=== PATIENT | female | born 1930 | race Caucasian/White ===

== ENCOUNTER 2018-03-25 20:25 | Inpatient (IN) | payer MEDICARE, OTHER ==
[~2018-03-25] VITALS: Ht 157.5 cm; Wt 48.9 kg
[~2018-03-25 20:25] MED LIST: ACET325 PO; AMLO10 PO; AMLO5 PO; ASPI325 PO; ASPI81CH PO; Amlodipine Besyl5 MG PO; BISA10S PR; CENTRUM SILVER1 EAC1 PO; CEPH500 PO; CHOL10002 PO; CIPR500 PO; CLON.5 PO; CYCL10 PO; Cranberry Conc500 MG PO; DOCU100 PO; ENOX40I SC; FAMO20 PO; FISH1000 PO; FLUO.05TO TOP; GENT.1TC TOP; HYDR1TAB94 PO; IBUP400 PO; Kristalose20 GM PO; LAVAP17G PO; LEVSOD100 PO; LEVSOD50 PO; LISI5 PO; METR500 PO; MULTI VITAMIN1 EACH PO; MULVITMIND PO; OMEP20ER PO; OXYACE5T PO; PANT40 PO; PROBIOTIC PO; PROBIOTIC1 EAC2 PO; Percocet 5-3251 EACH PO; Pyridium200 MG PO; RANI150 PO; SACC250C PO; SIMV40 PO; Senna Laxative8.6 MG PO; Senna8.6 M1 PO; VANCOCIN HCL125 MG GT; WARF2 PO; WARF3 PO; WARF4 PO; Zofran Odt8 MG SL
[2018-03-25] MEDS ORDERED: BACL10 (20:44)
[2018-03-25 22:06] LABS: BASOPHILS ABSOLUTE AUTO 0.04 K/mm3 (0.00-0.23); BASOPHILS PERCENT AUTO 1 % (0-2); EOSINOPHILS ABSOLUTE AUTO 0.13 K/mm3 (0.00-0.68); EOSINOPHILS PERCENT AUTO 2 % (0-6); Hematocrit 33.6 % (33.0-51.0); Hemoglobin 10.7 g/dL (11.5-16.0); IMMATURE GRAN ABSOLUTE AUTO 0.01 K/mm3 (0.00-0.10); IMMATURE GRAN PERCENT AUTO 0 % (0-1); LYMPHOCYTES PERCENT AUTO 20 % (21-46); MONOCYTES ABSOLUTE AUTO 0.78 K/mm3 (0.16-1.47); MONOCYTES PERCENT AUTO 11 % (4-13); Mean Corpuscular HGB 25.5 pg (26.0-34.0); Mean Corpuscular HGB Conc 31.8 g/dL (31.5-36.5); Mean Corpuscular Volume 80 fL (80-100); Mean Platelet Volume 8.8 fL (9.1-12.4); NEUTROPHILS ABSOLUTE AUTO 4.91 K/mm3 (1.96-9.15); NEUTROPHILS PERCENT AUTO 67 % (41-73); Platelet Count 275 K/mm3 (150-400); RDW Coefficient Variation 15.5 % (11.7-14.2); RDW Standard Deviation 44.3 fL (35.1-46.3); Red Blood Cell Count 4.19 M/mm3 (3.80-5.20); White Blood Cell Count 7.37 K/mm3 (4.00-11.30)
[2018-03-25 22:27] LABS: Alanine Aminotransfer (ALT/SGP 16 U/L (12-78); Albumin, Blood 3.7 g/dL (3.4-5.0); Alk Phos 70 U/L (50-136); Anion Gap 7 mmol/L (6-16); Aspartate Aminotrans (AST/SGOT 17 U/L (12-37); Bilirubin, Total 0.3 mg/dL (0.1-1.0); Blood Urea Nitrogen 22 mg/dL (8-24); Bun/Creatinine Ratio 24.4 (12.0-20.0); CO2, Blood 28 mmol/L (21-32); Calcium, Blood 9.6 mg/dL (8.5-10.1); Chloride, Blood 96 mmol/L (98-108); Globulin, Blood 3.6 g/dL (2.2-4.0); Glomerular Filtration Rate >60 (60-); Glucose, Blood 107 mg/dL (70-99); Potassium, Blood 4.5 mmol/L (3.5-5.5); Sodium, Blood 131 mmol/L (136-145); Total Protein, Blood 7.3 g/dL (6.4-8.2); Troponin I <0.015 ng/mL (0.000-0.040)
[2018-03-26] MEDS ORDERED: Senna8.6 MG PO (01:56)
[2018-03-26] MEDS ORDERED: DOC250 PO (01:58)
[2018-03-26] MEDS ORDERED: Milk Of Ma400 MG/5 M PO (02:00)
[2018-03-26] MEDS ORDERED: MIRALAX17 GM PO (02:01)
[2018-03-26] MEDS ORDERED: GLYCPS PR (02:04)
[2018-03-26] MEDS ORDERED: Ensure Plus237 ML PO (02:07)
[2018-03-26] MEDS ORDERED: magnesium PO (02:11)
[2018-03-26] MEDS ORDERED: ZINC15 PO (02:13)
[2018-03-28 05:10] LABS: BASOPHILS ABSOLUTE AUTO 0.06 K/mm3 (0.00-0.23); BASOPHILS PERCENT AUTO 1 % (0-2); EOSINOPHILS ABSOLUTE AUTO 0.34 K/mm3 (0.00-0.68); EOSINOPHILS PERCENT AUTO 6 % (0-6); Hemoglobin 9.7 g/dL (11.5-16.0); IMMATURE GRAN ABSOLUTE AUTO 0.01 K/mm3 (0.00-0.10); IMMATURE GRAN PERCENT AUTO 0 % (0-1); LYMPHOCYTES ABSOLUTE AUTO 1.29 K/mm3 (0.84-5.20); LYMPHOCYTES PERCENT AUTO 24 % (21-46); MONOCYTES ABSOLUTE AUTO 0.61 K/mm3 (0.16-1.47); MONOCYTES PERCENT AUTO 11 % (4-13); Mean Corpuscular HGB 25.3 pg (26.0-34.0); Mean Corpuscular HGB Conc 31.3 g/dL (31.5-36.5); Mean Corpuscular Volume 81 fL (80-100); Mean Platelet Volume 9.3 fL (9.1-12.4); NEUTROPHILS ABSOLUTE AUTO 3.18 K/mm3 (1.96-9.15); NEUTROPHILS PERCENT AUTO 58 % (41-73); Platelet Count 273 K/mm3 (150-400); RDW Coefficient Variation 15.4 % (11.7-14.2); RDW Standard Deviation 44.6 fL (35.1-46.3); Red Blood Cell Count 3.83 M/mm3 (3.80-5.20); White Blood Cell Count 5.49 K/mm3 (4.00-11.30)
[2018-03-28 05:26] LABS: Bun/Creatinine Ratio 26.5 (12.0-20.0); Creatinine, Blood 0.98 mg/dL (0.40-1.00); Potassium, Blood 5.3 mmol/L (3.5-5.5)
[2018-03-29 05:48] LABS: Albumin, Blood 3.5 g/dL (3.4-5.0); Anion Gap 6 mmol/L (6-16); Blood Urea Nitrogen 23 mg/dL (8-24); Bun/Creatinine Ratio 27.3 (12.0-20.0); CO2, Blood 25 mmol/L (21-32); Calcium, Blood 9.2 mg/dL (8.5-10.1); Chloride, Blood 97 mmol/L (98-108); Creatinine, Blood 0.84 mg/dL (0.40-1.00); Glomerular Filtration Rate >60 (60-); Glucose, Blood 93 mg/dL (70-99); Phosphorus, Blood 2.8 mg/dL (2.5-4.9); Potassium, Blood 4.8 mmol/L (3.5-5.5); Sodium, Blood 128 mmol/L (136-145)
[2018-03-30 05:06] LABS: BASOPHILS ABSOLUTE AUTO 0.04 K/mm3 (0.00-0.23); BASOPHILS PERCENT AUTO 1 % (0-2); EOSINOPHILS ABSOLUTE AUTO 0.62 K/mm3 (0.00-0.68); EOSINOPHILS PERCENT AUTO 11 % (0-6); Hematocrit 31.5 % (33.0-51.0); IMMATURE GRAN ABSOLUTE AUTO 0.01 K/mm3 (0.00-0.10); IMMATURE GRAN PERCENT AUTO 0 % (0-1); LYMPHOCYTES ABSOLUTE AUTO 1.64 K/mm3 (0.84-5.20); LYMPHOCYTES PERCENT AUTO 29 % (21-46); MONOCYTES ABSOLUTE AUTO 0.67 K/mm3 (0.16-1.47); MONOCYTES PERCENT AUTO 12 % (4-13); Mean Corpuscular HGB 25.6 pg (26.0-34.0); Mean Corpuscular HGB Conc 31.7 g/dL (31.5-36.5); Mean Corpuscular Volume 81 fL (80-100); Mean Platelet Volume 9.3 fL (9.1-12.4); NEUTROPHILS PERCENT AUTO 48 % (41-73); Platelet Count 281 K/mm3 (150-400); RDW Coefficient Variation 15.6 % (11.7-14.2); RDW Standard Deviation 45.2 fL (35.1-46.3); Red Blood Cell Count 3.91 M/mm3 (3.80-5.20); White Blood Cell Count 5.68 K/mm3 (4.00-11.30)
[2018-03-30 05:24] LABS: Albumin, Blood 3.1 g/dL (3.4-5.0); Anion Gap 6 mmol/L (6-16); Blood Urea Nitrogen 33 mg/dL (8-24); Bun/Creatinine Ratio 33.3 (12.0-20.0); CO2, Blood 25 mmol/L (21-32); Chloride, Blood 98 mmol/L (98-108); Creatinine, Blood 0.99 mg/dL (0.40-1.00); Glomerular Filtration Rate 56 (60-); Glucose, Blood 81 mg/dL (70-99); Phosphorus, Blood 3.6 mg/dL (2.5-4.9); Potassium, Blood 5.3 mmol/L (3.5-5.5); Sodium, Blood 129 mmol/L (136-145)
[2018-03-30 06:43] LABS: Osmolality, Serum 274 mos/KG (275-300)
[2018-03-30] MEDS ORDERED: Calcitonin-Sal3.7 ML (18:01)
[2018-03-30] MEDS ORDERED: FENT50TP TOP (18:01)
[2018-03-30] MEDS ORDERED: CHOL10002 PO (18:02)
== END 2018-03-30 16:41 | DRG 181 ==
LOC: ER 20:25 → MEDS 20:26
PROVIDERS: Emergency Medicine; Family Medicine
PROC: 0BBJ3ZX Excision of Left Lower Lung Lobe, Percutaneous Approach, Diagnostic (ICD-10-PCS; principal; 2018-03-30)
DX: C34.32 Malignant neoplasm of lower lobe, left bronchus or lung (principal); S22.059A Unspecified fracture of T5-T6 vertebra, initial encounter for closed fracture; E87.1 Hypo-osmolality and hyponatremia; M81.0 Age-related osteoporosis without current pathological fracture; I10 Essential (primary) hypertension; Z86.718 Personal history of other venous thrombosis and embolism; F17.210 Nicotine dependence, cigarettes, uncomplicated; Z66 Do not resuscitate; E03.9 Hypothyroidism, unspecified; K25.9 Gastric ulcer, unspecified as acute or chronic, without hemorrhage or perforation; E78.5 Hyperlipidemia, unspecified; E55.9 Vitamin D deficiency, unspecified; R53.81 Other malaise; R59.0 Localized enlarged lymph nodes
CPT/HCPCS: 36415; 71260; 72128; 72131; 74177; 80048; 80053; 80069; 82306; 83930; 83935; 84484; 85025; 93005; 93010; 96372; 96374; 96375; 96376; 97110; 97116; 97161; 97530; 99285; G0378; G8978; G8979; J0630; J1650; J1885; J2405; J3010; Q9967

== ENCOUNTER → 2018-05-03 | Outpatient (CLI) | payer MEDICARE, OTHER ==
[~2018-05-03] MED LIST changes: +BACL10; +Calcitonin-Sal3.7 ML; +DOC250 PO; +Ensure Plus237 ML PO; +FENT50TP TOP; +GLYCPS PR; +MIRALAX17 GM PO; +Milk Of Ma400 MG/5 M PO; +Senna8.6 MG PO; +ZINC15 PO; +magnesium PO
== END | disposition home or self-care (01) ==
LOC: LAB SHORT 07:45 → PLD 07:45
DX: R22.1 Localized swelling, mass and lump, neck (principal); D49.0 Neoplasm of unspecified behavior of digestive system
CPT/HCPCS: 88173

== ENCOUNTER 2018-06-27 21:45 | Emergency (ER) | payer MEDICARE, OTHER ==
[~2018-06-27] VITALS: Ht 154.9 cm; Wt 45.4 kg
[2018-06-27] MEDS ORDERED: CLON.1 PO (22:06)
[2018-06-27 23:49] LABS: BASOPHILS ABSOLUTE AUTO 0.05 K/mm3 (0.00-0.23); BASOPHILS PERCENT AUTO 1 % (0-2); EOSINOPHILS ABSOLUTE AUTO 0.29 K/mm3 (0.00-0.68); EOSINOPHILS PERCENT AUTO 6 % (0-6); Hematocrit 29.3 % (33.0-51.0); Hemoglobin 9.1 g/dL (11.5-16.0); IMMATURE GRAN PERCENT AUTO 0 % (0-1); LYMPHOCYTES ABSOLUTE AUTO 1.03 K/mm3 (0.84-5.20); LYMPHOCYTES PERCENT AUTO 20 % (21-46); MONOCYTES ABSOLUTE AUTO 0.61 K/mm3 (0.16-1.47); MONOCYTES PERCENT AUTO 12 % (4-13); Mean Corpuscular HGB 25.3 pg (26.0-34.0); Mean Corpuscular HGB Conc 31.1 g/dL (31.5-36.5); Mean Corpuscular Volume 81 fL (80-100); Mean Platelet Volume 9.2 fL (9.1-12.4); NEUTROPHILS PERCENT AUTO 62 % (41-73); Platelet Count 267 K/mm3 (150-400); RDW Coefficient Variation 14.9 % (11.7-14.2); RDW Standard Deviation 44.2 fL (35.1-46.3); White Blood Cell Count 5.18 K/mm3 (4.00-11.30)
[2018-06-28 00:09] LABS: Anion Gap 8 mmol/L (6-16); Blood Urea Nitrogen 32 mg/dL (8-24); CO2, Blood 23 mmol/L (21-32); Calcium, Blood 8.5 mg/dL (8.5-10.1); Chloride, Blood 99 mmol/L (98-108); Creatinine, Blood 0.89 mg/dL (0.40-1.00); Glomerular Filtration Rate >60 (60-); Glucose, Blood 94 mg/dL (70-99); Magnesium, Blood 2.2 mg/dL (1.6-2.4); Potassium, Blood 4.7 mmol/L (3.5-5.5); Sodium, Blood 130 mmol/L (136-145)
== END 2018-06-28 01:13 | disposition home or self-care (01) ==
LOC: ER 21:45
PROVIDERS: Emergency Medicine
DX: R03.1 Nonspecific low blood-pressure reading (principal); Z88.5 Allergy status to narcotic agent; Z88.8 Allergy status to other drugs, medicaments and biological substances; Z88.2 Allergy status to sulfonamides; Z88.1 Allergy status to other antibiotic agents; Z79.899 Other long term (current) drug therapy; I10 Essential (primary) hypertension; Z79.82 Long term (current) use of aspirin; Z79.891 Long term (current) use of opiate analgesic
CPT/HCPCS: 36415; 80048; 83735; 85025; 93005; 93010; 99284-25

== ENCOUNTER 2018-07-18 20:34 | Observation (INO) | payer MEDICARE, OTHER ==
[~2018-07-18] VITALS: Ht 154.9 cm; Wt 46.0 kg
[~2018-07-18 20:34] MED LIST changes: +CLON.1 PO; -DOC250 PO; +Duragesic TOP; -FENT50TP TOP
[2018-07-18] MEDS ORDERED: FURO20 PO (20:52)
[2018-07-18 21:45] LABS: BASOPHILS ABSOLUTE AUTO 0.04 K/mm3 (0.00-0.23); BASOPHILS PERCENT AUTO 1 % (0-2); EOSINOPHILS ABSOLUTE AUTO 0.09 K/mm3 (0.00-0.68); EOSINOPHILS PERCENT AUTO 2 % (0-6); Hematocrit 28.8 % (33.0-51.0); Hemoglobin 8.9 g/dL (11.5-16.0); IMMATURE GRAN ABSOLUTE AUTO 0.02 K/mm3 (0.00-0.10); IMMATURE GRAN PERCENT AUTO 0 % (0-1); LYMPHOCYTES ABSOLUTE AUTO 0.73 K/mm3 (0.84-5.20); LYMPHOCYTES PERCENT AUTO 12 % (21-46); MONOCYTES ABSOLUTE AUTO 0.63 K/mm3 (0.16-1.47); MONOCYTES PERCENT AUTO 11 % (4-13); Mean Corpuscular HGB 24.8 pg (26.0-34.0); Mean Corpuscular HGB Conc 30.9 g/dL (31.5-36.5); Mean Corpuscular Volume 80 fL (80-100); NEUTROPHILS PERCENT AUTO 74 % (41-73); RDW Coefficient Variation 14.9 % (11.7-14.2); RDW Standard Deviation 43.3 fL (35.1-46.3); Red Blood Cell Count 3.59 M/mm3 (3.80-5.20); White Blood Cell Count 5.91 K/mm3 (4.00-11.30)
[2018-07-18 21:49] LABS: Mean Platelet Volume 9.7 fL (9.1-12.4); Platelet Count 166 K/mm3 (150-400)
[2018-07-18 22:04] LABS: Troponin I 0.016 ng/mL (0.000-0.040)
[2018-07-18 22:04] LABS: Source, Urine Catheter
[2018-07-18 22:05] LABS: Alanine Aminotransfer (ALT/SGP 24 U/L (12-78); Albumin, Blood 3.5 g/dL (3.4-5.0); Albumin/Globulin Ratio 1.2 (0.8-1.8); Alk Phos 57 U/L (50-136); Anion Gap 10 mmol/L (6-16); Aspartate Aminotrans (AST/SGOT 18 U/L (12-37); Bilirubin, Total 0.3 mg/dL (0.1-1.0); Blood Urea Nitrogen 21 mg/dL (8-24); CO2, Blood 25 mmol/L (21-32); Calcium, Blood 8.8 mg/dL (8.5-10.1); Chloride, Blood 92 mmol/L (98-108); Globulin, Blood 2.9 g/dL (2.2-4.0); Glucose, Blood 101 mg/dL (70-99); Potassium, Blood 4.1 mmol/L (3.5-5.5); Sodium, Blood 127 mmol/L (136-145); Total Protein, Blood 6.4 g/dL (6.4-8.2)
[2018-07-18 22:11] LABS: Bilirubin, Urine Neg (Neg); Blood, Urine Neg (Neg); Glucose Qualitative, Urine Neg (Neg); Ketones, Urine Neg (Neg); Leukocyte Esterase, Urine Neg (Neg); Nitrite, Urine Neg (Neg); Protein, Urine Neg (Neg); Urobilinogen, Urine NORM (Normal)
[2018-07-18 22:12] LABS: Bun/Creatinine Ratio 25.8 (12.0-20.0); Creatinine, Blood 0.82 mg/dL (0.40-1.00); Glomerular Filtration Rate >60 (60-)
[2018-07-18 22:18] LABS: Appearance, Urine Clear (Clear); Color, Urine Yellow (P-Yellow)
[2018-07-19 00:12] LABS: International Normalized Ratio 1.11; Prothrombin Time Results 11.4 Sec (9.7-11.5)
[2018-07-19 10:19] LABS: Hematocrit 30.4 % (33.0-51.0); Hemoglobin 9.4 g/dL (11.5-16.0); Mean Corpuscular HGB 24.9 pg (26.0-34.0); Mean Corpuscular HGB Conc 30.9 g/dL (31.5-36.5); Mean Corpuscular Volume 80 fL (80-100); Mean Platelet Volume 9.1 fL (9.1-12.4); Platelet Count 216 K/mm3 (150-400); RDW Standard Deviation 44.1 fL (35.1-46.3); Red Blood Cell Count 3.78 M/mm3 (3.80-5.20); White Blood Cell Count 4.97 K/mm3 (4.00-11.30)
[2018-07-19 10:40] LABS: Alanine Aminotransfer (ALT/SGP 22 U/L (12-78); Albumin, Blood 3.3 g/dL (3.4-5.0); Alk Phos 60 U/L (50-136); Anion Gap 7 mmol/L (6-16); Aspartate Aminotrans (AST/SGOT 16 U/L (12-37); Bilirubin, Total 0.4 mg/dL (0.1-1.0); Blood Urea Nitrogen 16 mg/dL (8-24); Bun/Creatinine Ratio 20.3 (12.0-20.0); CO2, Blood 27 mmol/L (21-32); Calcium, Blood 8.5 mg/dL (8.5-10.1); Chloride, Blood 98 mmol/L (98-108); Creatinine, Blood 0.79 mg/dL (0.40-1.00); Globulin, Blood 3.2 g/dL (2.2-4.0); Glomerular Filtration Rate >60 (60-); Glucose, Blood 153 mg/dL (70-99); Potassium, Blood 3.6 mmol/L (3.5-5.5); Sodium, Blood 132 mmol/L (136-145); Total Protein, Blood 6.5 g/dL (6.4-8.2)
[2018-07-19] MEDS ORDERED: Hytrin2 MG PO (16:47)
[2018-07-20] MEDS ORDERED: LIDO700A20 TOP (08:52)
[2018-07-20] MEDS ORDERED: ALBU90OI INH (08:53)
== END 2018-07-20 14:14 | disposition home health service (06) ==
LOC: ER 20:34 → MEDS 20:35
PROVIDERS: Emergency Medicine; Internal Medicine
DX: E86.0 Dehydration (principal); E87.1 Hypo-osmolality and hyponatremia; D64.9 Anemia, unspecified; R53.1 Weakness; M51.35 Other intervertebral disc degeneration, thoracolumbar region; M80.08XA Age-related osteoporosis with current pathological fracture, vertebra(e), initial encounter for fracture; I10 Essential (primary) hypertension; E03.9 Hypothyroidism, unspecified; K21.9 Gastro-esophageal reflux disease without esophagitis; K56.609 Unspecified intestinal obstruction, unspecified as to partial versus complete obstruction; Z87.11 Personal history of peptic ulcer disease; Z79.82 Long term (current) use of aspirin; Z79.899 Other long term (current) drug therapy; Z88.5 Allergy status to narcotic agent; Z88.1 Allergy status to other antibiotic agents; Z88.2 Allergy status to sulfonamides; Z86.73 Personal history of transient ischemic attack (TIA), and cerebral infarction without residual deficits; Z87.891 Personal history of nicotine dependence
CPT/HCPCS: 36415; 71046; 72100; 80053; 81003; 82272; 83735; 84145; 84443; 84484; 85025; 85027; 85610; 85730; 86850; 86900; 86901; 93005; 93010; 94760; 94761; 96372; 96374; 97116; 97162; 97166; 97530; 97535; 99285-25; C9113; G0378; G8978; G8979; G8980; G8987; G8988; J0630; J1650; J7030

== ENCOUNTER → 2018-12-13 | Outpatient (CLI) | payer MEDICARE, OTHER ==
[~2018-12-13] MED LIST changes: +ACYC400 PO; +ALBU90OI INH; +AMOCLA500 PO; +BIOTENE MOIST44.3 ML PO; +FURO20 PO; +Hytrin2 MG PO; +INCRUSE ELLI62.5 MCG INH; +LIDO700A20 TOP; +ONDA4ODT SL; +PRED10 PO; +Phos-Nak Packe1 EACH PO
== END ==
LOC: PLD 07:11 → LAB SHORT 07:11
DX: D11.9 Benign neoplasm of major salivary gland, unspecified (principal)
CPT/HCPCS: 88173

== ENCOUNTER 2018-12-16 03:42 | Inpatient (IN) | payer MEDICARE, OTHER ==
[~2018-12-16] VITALS: Ht 154.9 cm; Wt 50.6 kg
[~2018-12-16 03:42] MED LIST changes: -ACYC400 PO; -AMOCLA500 PO; -BIOTENE MOIST44.3 ML PO; -INCRUSE ELLI62.5 MCG INH; -ONDA4ODT SL; -PRED10 PO; -Phos-Nak Packe1 EACH PO
[2018-12-16 04:15] LABS: Calcium, Ionized (POC) 1.23 mmol/L (1.10-1.46); Chloride (POC) 99 mmol/L (98-108); Creatinine (POC) 0.7 mg/dL (0.6-1.0); Glucose (ISTAT POC) 153 mg/dL (70-99); Hemoglobin (POC) 11.9 g/dL (12.0-16.0); Potassium (POC) 3.9 mmol/L (3.5-5.5); Sodium (POC) 136 mmol/L (135-148); Total CO2 (POC) 25 mmol/L (21-32)
[2018-12-16 04:15] LABS: BASOPHILS ABSOLUTE AUTO 0.02 K/mm3 (0.00-0.23); BASOPHILS PERCENT AUTO 0 % (0-2); EOSINOPHILS PERCENT AUTO 0 % (0-6); Hematocrit 35.2 % (33.0-51.0); IMMATURE GRAN ABSOLUTE AUTO 0.03 K/mm3 (0.00-0.10); IMMATURE GRAN PERCENT AUTO 0 % (0-1); LYMPHOCYTES ABSOLUTE AUTO 0.26 K/mm3 (0.84-5.20); LYMPHOCYTES PERCENT AUTO 3 % (21-46); MONOCYTES ABSOLUTE AUTO 0.67 K/mm3 (0.16-1.47); MONOCYTES PERCENT AUTO 7 % (4-13); Mean Corpuscular HGB 24.9 pg (26.0-34.0); Mean Corpuscular HGB Conc 31.3 g/dL (31.5-36.5); Mean Corpuscular Volume 80 fL (80-100); Mean Platelet Volume 9.1 fL (9.1-12.4); NEUTROPHILS ABSOLUTE AUTO 8.81 K/mm3 (1.96-9.15); NEUTROPHILS PERCENT AUTO 90 % (41-73); Platelet Count 191 K/mm3 (150-400); RDW Standard Deviation 51.4 fL (35.1-46.3); Red Blood Cell Count 4.41 M/mm3 (3.80-5.20); White Blood Cell Count 9.79 K/mm3 (4.00-11.30)
[2018-12-16] MEDS ORDERED: INCRUSE ELLI62.5 MCG INH (04:15)
[2018-12-16] MEDS ORDERED: HYDR1TAB94 PO (04:22)
[2018-12-16 04:25] LABS: Alanine Aminotransfer (ALT/SGP 22 U/L (12-78); Albumin, Blood 3.7 g/dL (3.4-5.0); Alk Phos 70 U/L (50-136); Anion Gap 8 mmol/L (6-16); Aspartate Aminotrans (AST/SGOT 26 U/L (12-37); Bilirubin, Total 0.5 mg/dL (0.1-1.0); Blood Urea Nitrogen 27 mg/dL (8-24); Bun/Creatinine Ratio 35.1 (12.0-20.0); CO2, Blood 26 mmol/L (21-32); Calcium, Blood 9.1 mg/dL (8.5-10.1); Chloride, Blood 102 mmol/L (98-108); Creatinine, Blood 0.77 mg/dL (0.40-1.00); Globulin, Blood 3.7 g/dL (2.2-4.0); Glomerular Filtration Rate >60 (60-); Glucose, Blood 152 mg/dL (70-99); Potassium, Blood 4.1 mmol/L (3.5-5.5); Sodium, Blood 136 mmol/L (136-145); Total Protein, Blood 7.4 g/dL (6.4-8.2)
--- NOTE | 2018-12-16 08:26 | NUR ---
NURSING PCU DAYSHIFT: Assumed care of pt at approx 0715. Arrived from ER via [facility] to unit bed w/one staff assist. Pt is a/o, [place], cooperative w/care. C/O mild general weakness. Mass noted to L jaw, largest round area below L jaw and extends up to the L ear, shaped like an avocado. Area is red, hard, and painful. Tele in place, NSR, no c/o CP/pressure, SBP 160's, no noted edema. L/S w/scattered wheezes and coarseness, crackles noted to RLL, denies dyspnea, O2 sat stable, placed currently on 2L NC, no noted cough. Abd SNT, BT+, c/o difficulty and pain swallowing r/t mass. Voiding w/o difficulty though experiences occ incontinence, urine is cloudy and malodorous. PIV x1, s/l w/abx as ordered. Consult placed to ENT, update provided, plans to eval this afternoon for poss aspiration. Seen by PMD, new d/o received, pt ok'd for [place] diet as long as there is no noted aspiration. Pt oriented to unit and call system, denies any questions/needs, cont to monitor for changes.
[2018-12-16 09:26] LABS: Source, Urine Voided
[2018-12-16 09:37] LABS: Bilirubin, Urine Neg (Neg); Blood, Urine 1+ (Neg); Glucose Qualitative, Urine Neg (Neg); Ketones, Urine Neg (Neg); Leukocyte Esterase, Urine Neg (Neg); Nitrite, Urine Neg (Neg); Protein, Urine 2+ (Neg); Urobilinogen, Urine NORM (Normal)
[2018-12-16 10:51] LABS: Appearance, Urine Clear (Clear); Bacteria Not Seen /hpf; Color, Urine Yellow (P-Yellow); Red Blood Cells, Urine 0-2 /hpf (0-2); Squamous Epithelial Cells Few /hpf (Few); White Blood Cells, Urine Not Seen /hpf (0-5)
--- NOTE | 2018-12-16 16:20 | NUR ---
12/16/18 1620 Denise Gilbert PT ON SCHEDULED ANTIBIOTICS AND RECIEVED THEM PRIOR TO ARRIVAL TO OR.
--- NOTE | 2018-12-16 17:28 | NUR ---
ASSUMED CARE / SHIFT SUMMARY: BEDSIDE REPORT RECEIVED FROM VEE Donald RN FROM OR, & CINDY Hunt [employer]PER[employer]. PT ARRIVED TO ICU-13 AT APPROX 1632. PT IS INTUBATED & SEDATED ON ARRIVAL. SHE ARRIVES FROM THE OR, HAVING PREVIOUSLY BEEN ADMITTED TO PCU, FOLLOWING A SUBMANDIBULAR ABCESS DRAINAGE TO THE L SIDE OF NECK. 7.0 ETT IS 22.0 CM AT LIP. VENT SETTINGS: AC 14, TV 300, PEEP 5, FiO2 30%. O2 SATS > 92%. LS ARE DIM & COARSE IN BASES. SR W/ HR 70-80s NOTED ON MONITOR. PT IS HYPERTENSIVE ON ARRIVAL, IMPROVING W/ SEDATION. HYPOACTIVE BT x4, PT NPO AT THIS TIME. DR. YAO STS TO ASSESS NEED FOR FURTHER NUTRITION TOMORROW. PT HAS BEEN INCONTINENT, UA SENT BY PRIOR RN. SKIN OVERALL IS CDI. DRESSING TO L SIDE OF NECK WHERE SURGICAL PROCEDURE WAS PERFORMED IS CDI, SMALL AMNT OF DARK DRAINAGE CAN BE SEEN THROUGH DRESSING. WILL CONTINUE TO MONITOR & REPORT OFF TO ONCOMING RN.
[2018-12-16 17:53] LABS: PCO2 Arterial 47.1 mmHg (35-45); PO2 Arterial 55.4 mmHg (80-100); pH Blood Arterial 7.37 (7.35-7.45)
--- NOTE | 2018-12-16 18:47 | NUR ---
BELONGINGS: 4 RINGS REMOVED FROM PT's HAND & PT's WATCH, WHICH HAD BEEN PLACED IN CHART PRIOR TO SURGERY, PLACED IN CUP W/ PT's NAME ON IT. ALL 4 RINGS & WATCH HAVE BEEN TAKEN HOME W/ THE PT's SON, LORNA.
[2018-12-16 20:38] LABS: Source, Urine Catheter
[2018-12-16 20:42] LABS: Appearance, Urine Clear (Clear); Bilirubin, Urine Neg (Neg); Blood, Urine 2+ (Neg); Color, Urine Yellow (P-Yellow); Glucose Qualitative, Urine Neg (Neg); Ketones, Urine Neg (Neg); Leukocyte Esterase, Urine Neg (Neg); Nitrite, Urine Neg (Neg); Protein, Urine 3+ (Neg); Specific Gravity, Urine 1.015 (1.003-1.022); Urobilinogen, Urine NORM (Normal)
[2018-12-16 20:57] LABS: Bacteria Not Seen /hpf; Red Blood Cells, Urine 0-2 /hpf (0-2); Squamous Epithelial Cells Many /hpf (Few); White Blood Cells, Urine 0-2 /hpf (0-5)
--- NOTE | 2018-12-16 22:00 | NUR ---
PATIENT INTUBATED AND SEDATED, WITH PROPOFOL INFUSING AT 50 MCG. PATIENT OPENS EYES SLIGHTLY, AND REACHES FOR ETT WITH STIMULI AND SUCTIONING, BUT NOT FOLLOWING DIRECTIONS. SUCTIONING LARGE AMT CLEAR SECRETIONS VIA ETT AND ORAL. LEFT SIDE OF NECK SWOLLEN, SWELLING REMAINS WITHIN THE BORDER DRAWN AROUND AREA. DRESSING REMAINS CD&I. FLORES PLACED DRAINING CLEAR YELLOW URINE.
[2018-12-17 03:33] LABS: BASOPHILS PERCENT AUTO 0 % (0-2); EOSINOPHILS PERCENT AUTO 0 % (0-6); Hematocrit 32.7 % (33.0-51.0); IMMATURE GRAN ABSOLUTE AUTO 0.06 K/mm3 (0.00-0.10); IMMATURE GRAN PERCENT AUTO 1 % (0-1); LYMPHOCYTES ABSOLUTE AUTO 0.28 K/mm3 (0.84-5.20); LYMPHOCYTES PERCENT AUTO 3 % (21-46); MONOCYTES ABSOLUTE AUTO 0.47 K/mm3 (0.16-1.47); MONOCYTES PERCENT AUTO 5 % (4-13); Mean Corpuscular HGB 25.3 pg (26.0-34.0); Mean Corpuscular HGB Conc 30.6 g/dL (31.5-36.5); Mean Platelet Volume 9.8 fL (9.1-12.4); NEUTROPHILS ABSOLUTE AUTO 8.73 K/mm3 (1.96-9.15); NEUTROPHILS PERCENT AUTO 92 % (41-73); Platelet Count 172 K/mm3 (150-400); RDW Coefficient Variation 18.6 % (11.7-14.2); RDW Standard Deviation 55.4 fL (35.1-46.3); Red Blood Cell Count 3.96 M/mm3 (3.80-5.20); White Blood Cell Count 9.54 K/mm3 (4.00-11.30)
[2018-12-17 03:37] LABS: Mean Corpuscular Volume 83 fL (80-100)
[2018-12-17 03:49] LABS: Anion Gap 7 mmol/L (6-16); Blood Urea Nitrogen 25 mg/dL (8-24); Bun/Creatinine Ratio 29.3 (12.0-20.0); CO2, Blood 24 mmol/L (21-32); Calcium, Blood 8.8 mg/dL (8.5-10.1); Chloride, Blood 106 mmol/L (98-108); Creatinine, Blood 0.85 mg/dL (0.40-1.00); Glomerular Filtration Rate >60 (60-); Glucose, Blood 128 mg/dL (70-99); Magnesium, Blood 2.3 mg/dL (1.6-2.4); Phosphorus, Blood 3.3 mg/dL (2.5-4.9); Potassium, Blood 4.1 mmol/L (3.5-5.5); Sodium, Blood 137 mmol/L (136-145)
[2018-12-17 04:58] LABS: PO2 Arterial 60.9 mmHg (80-100); pH Blood Arterial 7.41 (7.35-7.45)
--- NOTE | 2018-12-17 06:51 | NUR ---
SUMMARY PATIENT REMAINS INTUBATED AND SEDATED WITH PROPOFOL. PATIENT CONTINUES TO REACH FOR ETT WITH ORAL CARE AND REPOSITIONING. NOT FOLLOWING DIRECTIONS. SWELLING TO LEFT NECK CONTINUES TO BE WITHIN MARKED BOUNDARIES. BILAT WRIST RESTRAINTS CONTINUE.
--- NOTE | 2018-12-17 07:30 | NUR ---
ASSUMED CARE OF PATIENT SEE ASSESSMENT CHARTING FOR DETAILS. PATIENT REMAINS INTUBATED AND VENTILATOR SETTINGS REMAIN: A/C 14, TV 300, PEEP 5 AND FIO2 30%. SEDATED WITH PROPOFOL GTT AT 50MCG/KG/MIN; DELIA'S SCALE AROUND 3. PATIENT ROUSABLE TO VERBAL STIMULI; PEERL AT 3MM. MONITOR REMAINS NSR WITH RARE ECTOPY; VSS. LUNGS DIMINSHED IN BASES; CLEAR IN ANTERIOR LOBES. FLORES TO GRAVITY AND DRAINING SMALL AMOUNTS OF DEEJAY COLORED URINE. IVF INFUSING WITH LR AT 75ML/HR. BILAT. WRIST RESTRAINTS IN PLACE TO PREVENT SELF EXTUBATION AND PULLING OF LINES. SON AT BEDSIDE AND VERY SUPPORTIVE.
--- NOTE | 2018-12-17 10:45 | NUR ---
DR. GARCIA (ENT-SURGEON) HERE; SPOKE TO PATIENTS' SON AND DISCUSSED POC. ALSO, SPOKE WITH DR. ORELLANA (CEMETERY COUNSELOR) RE: POC; PROBABLE EXTUBATION TOMORROW; PLANS IS TO ALLOW SWELLING OF L FACE/JAW/THROAT TO CONT. TO REDUCE IN SIZE.
--- NOTE | 2018-12-17 10:55 | NUR ---
RN CHANGED L NECK DRESSING PER REQUEST DR. GARCIA. PEN-AIDEN DRAIN WITH LITTLE OR NO OUTPUT; DRAIN SPONGES PLACED AND COVERED WITH STERILE 4X4'S AND SECURED WITH MEFIX TAPE.
--- NOTE | 2018-12-17 18:00 | NUR ---
SUMMARY: FENTANYL 50MCG GIVEN AROUND 16:30 FOR INCREASED RESTLESSNESS AND PER SON'S REQUEST; BP MODERATELY ELEVATED. PATIENT MORE RELAXED AND PEACEFUL FOLLOWING MEDICATION; FOREHEAD LESS FURROWED. ONLY 290ML OF U.O. THE PAST 12 HOURS; REMAINS NPO D/T SURGERY TO NECK/ESOPHAGUS REGION. IVF AT 75ML/HR. WILL REPORT TO ONCOMING RN.
--- NOTE | 2018-12-17 20:45 | NUR ---
PATIENT INTUBATED AND SEDATED WITH PROPOFOL, AWAKENS TO SLIGHT STIMULI FOLLOWING DIRECTIONS AND NODDING YES AND NO TO QUESTIONS, ATTEMPTING TO TALK DESPITE REMINDING THAT SHE CAN'T TALK WITH ETT IN PLACE. VENT SET AT AC 14, TV 300, PEEP 5, FIO2 30% SWELLING TO LEFT NECK APPEARS TO BE DOWN FROM THIS MORNING.
[2018-12-18 03:40] LABS: BASOPHILS PERCENT AUTO 0 % (0-2); EOSINOPHILS PERCENT AUTO 0 % (0-6); Hematocrit 32.8 % (33.0-51.0); IMMATURE GRAN PERCENT AUTO 0 % (0-1); LYMPHOCYTES ABSOLUTE AUTO 0.17 K/mm3 (0.84-5.20); LYMPHOCYTES PERCENT AUTO 3 % (21-46); MONOCYTES PERCENT AUTO 6 % (4-13); Mean Corpuscular HGB 24.7 pg (26.0-34.0); Mean Corpuscular HGB Conc 30.5 g/dL (31.5-36.5); Mean Corpuscular Volume 81 fL (80-100); Mean Platelet Volume 9.4 fL (9.1-12.4); NEUTROPHILS ABSOLUTE AUTO 4.69 K/mm3 (1.96-9.15); NEUTROPHILS PERCENT AUTO 91 % (41-73); Platelet Count 181 K/mm3 (150-400); RDW Coefficient Variation 18.9 % (11.7-14.2); RDW Standard Deviation 55.7 fL (35.1-46.3); Red Blood Cell Count 4.05 M/mm3 (3.80-5.20); White Blood Cell Count 5.16 K/mm3 (4.00-11.30)
[2018-12-18 04:06] LABS: Albumin, Blood 2.7 g/dL (3.4-5.0); Anion Gap 8 mmol/L (6-16); Blood Urea Nitrogen 27 mg/dL (8-24); Bun/Creatinine Ratio 30.8 (12.0-20.0); CO2, Blood 26 mmol/L (21-32); Calcium, Blood 8.4 mg/dL (8.5-10.1); Chloride, Blood 107 mmol/L (98-108); Creatinine, Blood 0.88 mg/dL (0.40-1.00); Glomerular Filtration Rate >60 (60-); Glucose, Blood 125 mg/dL (70-99); Phosphorus, Blood 2.7 mg/dL (2.5-4.9); Potassium, Blood 3.9 mmol/L (3.5-5.5); Sodium, Blood 141 mmol/L (136-145)
--- NOTE | 2018-12-18 06:22 | NUR ---
SUMMARY PATIENT REMAINS INTUBATED AND SEDATED. PROPOFOL RESTARTED AT 25MCG AFTER WEAN COMPLETED BY RT. PATIENT AWAKENS EASILY AND FOLLOWING DIRECTIONS WITHOUT DIFFICULTY, NODDING YES AND NO TO QUESTIONS. FALLING BACK TO SLEEP WHEN UNDISTURBED. WRIST RESTRAINTS REMAIN IN PLACE DUE TO RISK FOR SELF EXTUBATION. SWELLING TO LEFT NECK REMAINS UNCHANGED, DRESSING REMAINS INTACT WITH SMALL AMT OF DRAINAGE SEEN CONTAINED IN DRESSING.
--- NOTE | 2018-12-18 07:36 | NUR ---
ASSUMED CARE PT. AWAKENS TO VERBAL STIMULI AND FOLLOWS COMMANDS. SHAKES HEAD NO TO QUESTIONS OF PAIN. PT. VSS THIS AM. REMAINS SEDATED ON VENT WITH SETTINGS OF AC 14, TV300, 30% PEEP 5. BILAT WRIST RESTRAINTS REMAIN IN PLACE FOR SAFETY. DRESSING REMAINS CDI TO LEFT NECK.
--- NOTE | 2018-12-18 09:45 | NUR ---
DR. ORELLANA AT BEDSIDE TO TALK WITH SON UPDATED ON PT CONDITION AND DISCUSSED IN DETAIL WITH SON PROCESS FOR EXTUBATION TO MAKE IT SAFE POSSIBLE FOR PATIENT. PT. SON VERBALIZED UNDERSTANDING. VSS AT THIS TIME.
--- NOTE | 2018-12-18 11:50 | NUR ---
CUFF LEAK TEST
--- NOTE | 2018-12-18 11:51 | NUR ---
CUFF LEAK TEST PT CUFF DEFLATED 4CC; NO CUFF LEAK AUDIBLE EXTERNALLY AND ONLY SLIGHT WHEEZE AUSCULTATED USING STETHOSCOPE. DR. ORELLANA NOTIFIED OF THIS. PLANS FOR PT TO REMAIN INTUBATED AT THIS TIME.
--- NOTE | 2018-12-18 18:05 | NUR ---
SHIFT SUMMARY PT. REMAINS SEDATED AND INTUBATED. ATTEMPTED CUFF DEFLATION TODAY WITH MINIMAL AIR LEAK NOTED. FOR AIRWAY PROTECTION ETT TO REMAIN IN PLACE T/O NIGHT AND REASSESS TOMORROW. PT VSS T/O SHIFT WITH FREQUENT PVCS. REPORT TO ONCOMING RN.
--- NOTE | 2018-12-18 19:30 | NUR ---
PATIENT INTUBATED AND SEDATED WITH PROPOFOL. VENT SET AT AC 14, TV 300, PEEP 5, FIO2 30% PATIENT AWAKENS TO SLIGHT STIMULI FALLING BACK TO SLEEP WHEN UNDISTURBED. SWELLING TO LEFT NECK CONTINUES AND IS WELL WITHIN MARKINGS AROUND AREA, DRESSING IN PLACE AND IS CD&I. BOTH HANDS ARE SWOLLEN, ELEVATED ON PILLOWS. NO EDEMA SEEN IN LOWER EXTREMITIES. DOCTOR REYNA AWARE OF NO OG IN PLACE DUE TO NECK SWELLING FOR ORAL MEDICATIONS, WILL CONTINUE TO HOLD FOR NOW AND MONITOR BP AND HEART MONITOR CLOSELY.
[2018-12-19 05:47] LABS: BASOPHILS PERCENT AUTO 0 % (0-2); EOSINOPHILS PERCENT AUTO 0 % (0-6); Hematocrit 37.1 % (33.0-51.0); Hemoglobin 11.3 g/dL (11.5-16.0); IMMATURE GRAN ABSOLUTE AUTO 0.03 K/mm3 (0.00-0.10); IMMATURE GRAN PERCENT AUTO 1 % (0-1); LYMPHOCYTES ABSOLUTE AUTO 0.39 K/mm3 (0.84-5.20); LYMPHOCYTES PERCENT AUTO 6 % (21-46); MONOCYTES ABSOLUTE AUTO 0.29 K/mm3 (0.16-1.47); MONOCYTES PERCENT AUTO 5 % (4-13); Mean Corpuscular HGB 25.5 pg (26.0-34.0); Mean Corpuscular HGB Conc 30.5 g/dL (31.5-36.5); NEUTROPHILS ABSOLUTE AUTO 5.77 K/mm3 (1.96-9.15); NEUTROPHILS PERCENT AUTO 89 % (41-73); Platelet Count 204 K/mm3 (150-400); RDW Coefficient Variation 19.1 % (11.7-14.2); RDW Standard Deviation 57.5 fL (35.1-46.3); Red Blood Cell Count 4.44 M/mm3 (3.80-5.20); White Blood Cell Count 6.48 K/mm3 (4.00-11.30)
[2018-12-19 05:59] LABS: Mean Corpuscular Volume 84 fL (80-100)
[2018-12-19 06:10] LABS: Albumin, Blood 2.9 g/dL (3.4-5.0); Anion Gap 8 mmol/L (6-16); Blood Urea Nitrogen 23 mg/dL (8-24); Bun/Creatinine Ratio 31.9 (12.0-20.0); CO2, Blood 26 mmol/L (21-32); Calcium, Blood 8.8 mg/dL (8.5-10.1); Chloride, Blood 108 mmol/L (98-108); Creatinine, Blood 0.72 mg/dL (0.40-1.00); Glomerular Filtration Rate >60 (60-); Glucose, Blood 107 mg/dL (70-99); Phosphorus, Blood 2.6 mg/dL (2.5-4.9); Potassium, Blood 3.9 mmol/L (3.5-5.5); Sodium, Blood 142 mmol/L (136-145)
--- NOTE | 2018-12-19 07:36 | NUR ---
SUMMARY PATIENT REMAINS INTUBATED AND SEDATED. PATIENT AWAKENS EASILY AND FOLLOWING DIRECTIONS. PATIENT BECOMING ANGRY AND PULLING ON RESTRAINTS AND ATTEMPTING TO SPEAK WHEN INFORMED THAT SHE WILL NEED TO KEEP THE ETT IN PLACE A WHILE LONGER AND THAT SHE WILL BE HAVING ANOTHER TEST LATER TODAY. PATIENT RELAXING AND AGREED TO SLEEP FOR NOW. PROPOFOL RESTARTED AT 50 MCG. NODDING HEAD NO WHEN ASKED IF SHE FEELS SHE NEEDS PAIN MEDICATION. PATIENT NOW MORE RELAXED AND BP BACK TO NORMAL. SWELLING TO LEFT NECK APPEARS TO BE BETTER THIS AM. BOTH HANDS ARE SWOLLEN, KEEPING THEM ELEVATED ON PILLOWS.
--- NOTE | 2018-12-19 08:33 | NUR ---
ASSUMED CARE / PROVIDER VISIT: REPORT RECEIVED FROM LORENA Donald RN. ASSUMED CARE OF THIS PT AT APPROX 0700. UPON ASSESSMENT, PT IS RESTING QUIETLY W/ PROPOFOL CHARTED IN FLOWSHEET FOR SEDATION. WHEN SEDATION VACATION IS PERFORMED, THE PT AWAKENS & IS FOLLOWING COMMANDS, SHE DENIES PAIN AT THAT TIME. SEDATION IS RESUMED & POWERGLIDE IS PLACED BY DG Schumacher RN. PT TOLERATED WELL. DR. ORELLANA IN ROOM TO SEE PT, HE STS THAT IF THERE IS A CUFF LEAK NOTED WHEN RT DEFLATES THE ETT CUFF & THE PT CONTINUES TO PASS WEAN TRIAL, SHE WILL LIKELY BE EXTUBATED TODAY. LORENA Cleaning RT, IS NOTIFIED OF THIS & WILL COME ATTEMPT CUFF DEFLATION SOON. WILL CONTINUE TO MONITOR & UPDATE NEEDED.
--- NOTE | 2018-12-19 09:22 | NUR ---
CUFF DEFLATION: LORENA Cleaning, RT, IN ROOM TO DEFLATE ETT CUFF. SHE STS THE PT DID NOT HAVE AN AUDIBLE AIR LEAK UNTIL THE CUFF WAS COMPLETELY DEFLATED. WILL NOTIFY DR. ORELLANA OF THIS & CONTINUE TO MONITOR.
--- NOTE | 2018-12-19 13:35 | NUR ---
DR. GARCIA: PROVIDER AT BEDSIDE, UPDATED ON POC. 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 HE STS OKAY TO PLACE OGT FOR NUTRITIONAL PURPOSES. WILL NOTIFY DR. ORELLANA OF THIS & REQUEST DIETARY CONSULT TO MANAGE NUTRITION. NO FURTHER ORDERS. WILL CONTINUE TO MONITOR & UPDATE NEEDED.
--- NOTE | 2018-12-19 18:31 | NUR ---
SHIFT SUMMARY: NO ACUTE CHANGES THIS SHIFT. PT REMAINS SEDATED/INTUBATED, FOLLOWING COMMANDS W/ LIGHTENED SEDATION AT TIMES. BILAT SOFT WRIST RESTRAINTS CHARTED IN INTERVENTIONS. LS ARE CLEAR T/O, DIM IN BASES. VENT SETTINGS: AC 14, TV 300, PEEP 5, FiO2 30%. NSR ON MONITOR, HR 60-70s. REMAINS HYPERTENSIVE, MEDS PER EMAR. BT x4, OGT W/ CONTINUOUS TF INFUSING AT 20 ML/HR, GOAL IS 30 ML/HR. FLORES PATENT/DRAINING DARK YELLOW URINE, PT DIURESED WELL W/ 2400 ML URINE OUTPUT THIS SHIFT. SKIN OVERALL CDI, DRESSING TO L NECK REMAINS CDI. POWERGLIDE TO BLAZE IS POSITIONAL W/ LAB DRAWS. WILL CONTINUE TO MONITOR & REPORT OFF TO ONCOMING RN.
--- NOTE | 2018-12-19 20:57 | NUR ---
ASSUMED PT CARE AT 1914 PT APPEARS COMFORTABLE IN BED WITH DAUGHTER AT BEDSIDE. VENTILATOR SETTINGS: AC14/ TV 300/ PEEP 5/ FIO2 30%. PROPOFOL INFUSING AT 50MCG/KG; LR AT 30MLS/HR; NS TKO. TF VITAL HIGH PROTEIN INFUSING AT 20ML/HR WITH A GOAL OF 30ML/HR. PER REPORTING OFF RN PT MAY BE IN NEED OF PRN LABETALOL D/T SBP >180. BP WAS REASSESSED WITH A BP OF 183/65; 20MG PRN LABETOLOL WITH OTHER SCHEDULED BP MEDICATIONS AT 2004. PRN LABETALOL UNEFFECTIVE WHEN BP WAS REASSESSED AT 2019 WITH SBP GREATER THAN 200 MMHG. ADMINISTERED THE OTHER 20MG OF PRN LABETALOL AT 2024. RESP RATE ALSO INCREASED TO 20-30; THEREFORE, PT WAS REPOSITIONED AND PRN FENTANYL 25MCG WAS ADMINISTERED. BOTH MEDICATIONS APPEAR EFFECTIVE BP HAS SINCE SLOWLY DECREASED TO 185/80; WILL CONTINUE TO MONITOR BP CLOSELY. PT APPEARS COMFORTABLE AT THIS TIME. CALL LIGHT IN REACH. FAMILY IS NO LONGER AT BEDSIDE.
--- NOTE | 2018-12-19 21:35 | NUR ---
NOTIFIED PHYSICIAN CALLED DR. ORELLANA D/T PT'S ELEVATED BP'S. NEW ORDERS FOR NORVASC 5MG PT ONE TIME ONLY, WELL ORDERS TO CHANGE PRN LABETALOL TO PRN Q4HRS INSTEAD OF Q6HRS. DR. ORELLANA ALSO GAVE ORDERS TO ADMINISTERED SYNTHROID 0.1MG PT AND TO D/C THE IV ORDER.
[2018-12-20 04:02] LABS: BASOPHILS PERCENT AUTO 0 % (0-2); EOSINOPHILS PERCENT AUTO 0 % (0-6); Hematocrit 36.5 % (33.0-51.0); Hemoglobin 11.1 g/dL (11.5-16.0); IMMATURE GRAN ABSOLUTE AUTO 0.02 K/mm3 (0.00-0.10); IMMATURE GRAN PERCENT AUTO 0 % (0-1); LYMPHOCYTES PERCENT AUTO 8 % (21-46); MONOCYTES ABSOLUTE AUTO 0.36 K/mm3 (0.16-1.47); MONOCYTES PERCENT AUTO 6 % (4-13); Mean Corpuscular HGB 25.6 pg (26.0-34.0); Mean Corpuscular HGB Conc 30.4 g/dL (31.5-36.5); Mean Corpuscular Volume 84 fL (80-100); Mean Platelet Volume 9.9 fL (9.1-12.4); NEUTROPHILS ABSOLUTE AUTO 5.44 K/mm3 (1.96-9.15); NEUTROPHILS PERCENT AUTO 86 % (41-73); Platelet Count 182 K/mm3 (150-400); RDW Coefficient Variation 19.4 % (11.7-14.2); RDW Standard Deviation 57.1 fL (35.1-46.3); Red Blood Cell Count 4.34 M/mm3 (3.80-5.20); White Blood Cell Count 6.32 K/mm3 (4.00-11.30)
[2018-12-20 04:43] LABS: Albumin, Blood 2.6 g/dL (3.4-5.0); Anion Gap 8 mmol/L (6-16); Blood Urea Nitrogen 26 mg/dL (8-24); Bun/Creatinine Ratio 39.6 (12.0-20.0); CO2, Blood 27 mmol/L (21-32); Calcium, Blood 8.2 mg/dL (8.5-10.1); Chloride, Blood 106 mmol/L (98-108); Creatinine, Blood 0.66 mg/dL (0.40-1.00); Glomerular Filtration Rate >60 (60-); Glucose, Blood 145 mg/dL (70-99); Magnesium, Blood 2.3 mg/dL (1.6-2.4); Phosphorus, Blood 2.8 mg/dL (2.5-4.9); Potassium, Blood 3.8 mmol/L (3.5-5.5); Sodium, Blood 141 mmol/L (136-145)
--- NOTE | 2018-12-20 05:55 | NUR ---
SBT/SEDATION VACATION PROPOFOL TURNED OFF AT 0430. SBT INITIATED AT 0445. PT WAS ALERT; CALM AND COOPERATIVE AND ABLE TO FOLLOW COMMANDS. VENT SETTINGS: PRESSURE SUPPORT 7/5 WITH FIO2 25%. PT MAINTAINTED RESP RATE LESS THAN 32 WITH RATE MAINLY IN THE 20'S; A COUPLE TIMES PT DROPPED DOWN TO LESS THAN 10 BPM AND HAD TO BE REMINDED TO TAKE A DEEP BREATH, WHICH SHE WAS ABLE TO DO SO. TV FLUCTUATED BETWEEN 300-500. OXYGEN SATURATIONS MAINTAINED GREATER THAN 95%. VS REMAINED STABLE T/O SBT. MINIMAL CUFF LEAK NOTED. AFTER SBT PT PLACED BACK ON PROPOFOL OF 30CG/KG.
--- NOTE | 2018-12-20 06:04 | NUR ---
END OF SHIFT SUMMARY PT HAS REMAINED INTUBATED AND SEDATED T/O SHIFT WITH PROPOFOL INFUSING AT 50MCG/KG. ABLE TO OPEN EYES AND FOLLOW COMMANDS DURING SEDATION VACATION; SEE PREVIOUS NOTE. VENT SETTINGS AC 14/ TV 300/ PEEP 5/ FIO2 25%. OXYGEN SATURATIONS GREATER THAN 91%. PT HAD NO SECRETIONS T/O SHIFT UNTIL AFTER SBT WAS OVER AND PT STARTED PRODUCING THICK, CLEAR SPUTUM. PT WAS DIURESED YESTERDAY ON DAY SHIFT AND HAS PRODUCED LARGE AMOUNTS OF CLEAR, YELLOW URINE. FLORES IS PATENT AND DRAINING TO GRAVITY. EDEMA TO BILATERAL ARMS/HANDS HAS DECREASED. LUNG SOUNDS ARE CLEAR T/O. PT HAS BEEN IN NSR TO SINUS BRADYCARDIA T/O THE NIGHT. PT REMAINS IN BILATERAL SOFT WRIST RESTRAINTS. PT HAS BEEN MEDICATED FOR PAIN X3 THIS SHIFT D/T PT DISPLAYING NONVERBAL S/SX OF PAIN. PT APPEARS COMFORTABLE AT THIS TIME.
--- NOTE | 2018-12-20 09:40 | NUR ---
ASSUMED CARE / FAMILY UPDATE; REPORT RECEIVED FROM RESHMA Grider RN. ASSUMED CARE OF THIS PT AT APPROX 0700. PT IS RESTING QUIETLY ON ASSESSMENT, RESPONDING TO PAINFUL STIMULI W/ SEDATION. DURING SEDATION VACATION, PT IS FULLY AWAKE & FOLLOWING COMMANDS. SHE DID BECOME ANXIOUS & TEARFUL DURING THIS TIME, BUT REDIRECTED EASILY. SEDATION RESUMED. PT IS NOW RESTING COMFORTABLY AGAIN. VENT SETTINGS: AC 14, TV 300, PEEP 5, FiO2 25%. CUFF LEAK IS AUDIBLE W/ PT COUGHING. WILL NOTIFY DR. GARZON DURING ROUNDING W/ HOPES OF EXTUBATION TODAY. DRESSING TO L NECK HAS BEEN CHANGED & AREA CLEANSED. PT's SISTER & SON AT BEDSIDE, THEY HAVE BEEN UPDATED ON POC & DENY QUESTIONS. WILL CONTINUE TO MONITOR & UPDATE NEEDED.
--- NOTE | 2018-12-20 11:30 | NUR ---
DR GARCIA IN TO ASSESS PT. DR GARCIA CLEARED PT TO BE EXTUBATED FROM HIS STANDPOINT IF CLEARED FROM DR GARZON. DRAIN PRESENT IN THE LT NECK D/C'D BY DR GARCIA. NEW NON-ADHERENT DRESSING WITH MEFIX PLACED OVER SITE. WILL F/U WITH DR GARZON ABOUT POSSIBLE EXTUBATION. DR. GARCIA REPORTS PT CAN BE TAPERED OFF OF IV STEROIDS AT THIS POINT AND WILL LEAVE THIS UP TO DR GARZON TO DECIDE TAPER.
--- NOTE | 2018-12-20 12:21 | NUR ---
DR. GARZON / UPDATE: PROVIDER ROUNDING, UPDATED ON POC W/ THIS PT. STS SHE WOULD LIKE A SBT TO BE COMPLETED WELL A CUFF LEAK TEST. DIANA Hunt, RT, NOTIFIED OF THIS. AIR LEAK IS AUDIBLE W/ DEFLATED ETT CUFF. SEDATION PLACED ON STANDBY FOR SBT. WILL CONTINUE TO MONITOR & UPDATE NEEDED.
--- NOTE | 2018-12-20 15:25 | NUR ---
PT. HAD POSITIVE CUFF LEAK AROUND TUBE TODAY.
--- NOTE | 2018-12-20 18:12 | NUR ---
SHIFT SUMMARY: PT REMAINS SEDATED/INTUBATED AFTER FAILING SBT THIS AFTERNOON & BECOMING APNEIC MULTIPLE TIMES. THE PT NODS "YES" WHEN ASKED IF SHE IS "TOO TIRED" TO FINISH SBT DURING THAT TIME. SHE SHAKES HER HEAD "NO" WHEN ASKED IF HAVING ANY PAIN. LS ARE CLEAR, SLIGHTLY DIM IN BASES. VENT SETTINGS: AC 14, TV 300, PEEP 5, & FiO2 25%. NSR NOTED ON MONITOR, HR 60-70s. REMAINS HYPERTENSIVE AT TIME, BUT IMPROVED W/ MORGUE KEEPER. BT x4, CONTINUOUS TF OF VITAL HP INFUSING AT GOAL OF 30 ML/HR. RESIUALS CONSISTENTLY LOW. FLORES PATENT/DRAINING DARK YELLOW URINE. SKIN OVERALL CDI. GAUZE DRESSING CDI FOLLOWING MANI DRAIN REMOVAL THIS AM. WILL CONTINUE TO MONITOR & REPORT OFF TO ONCOMING RN.
--- NOTE | 2018-12-20 20:00 | NUR ---
ASSUMED PT CARE AT 1915 PT RESTING COMFORTABLY IN BED WITH VENT SETTINGS: AC 14; TV 300; PEEP 5; FIO2 25%. OXYGEN SATURATIONS >92%. PT ABLE TO OPEN EYES TO VERBAL STIMULI AND FOLLOW COMMANDS. PROPOFOL INFUSING AT 50MCG/KG; NS TKO; LR TKO. PT APPEARS COMFORTABLE AT THIS TIME.
[2018-12-21 04:00] LABS: BASOPHILS PERCENT AUTO 0 % (0-2); EOSINOPHILS ABSOLUTE AUTO 0.02 K/mm3 (0.00-0.68); EOSINOPHILS PERCENT AUTO 0 % (0-6); Hematocrit 35.4 % (33.0-51.0); Hemoglobin 10.7 g/dL (11.5-16.0); IMMATURE GRAN ABSOLUTE AUTO 0.03 K/mm3 (0.00-0.10); IMMATURE GRAN PERCENT AUTO 0 % (0-1); LYMPHOCYTES ABSOLUTE AUTO 1.53 K/mm3 (0.84-5.20); LYMPHOCYTES PERCENT AUTO 21 % (21-46); MONOCYTES ABSOLUTE AUTO 0.86 K/mm3 (0.16-1.47); MONOCYTES PERCENT AUTO 12 % (4-13); Mean Corpuscular HGB 25.1 pg (26.0-34.0); Mean Corpuscular HGB Conc 30.2 g/dL (31.5-36.5); Mean Corpuscular Volume 83 fL (80-100); Mean Platelet Volume 8.8 fL (9.1-12.4); NEUTROPHILS ABSOLUTE AUTO 4.87 K/mm3 (1.96-9.15); NEUTROPHILS PERCENT AUTO 67 % (41-73); Platelet Count 204 K/mm3 (150-400); RDW Coefficient Variation 18.5 % (11.7-14.2); RDW Standard Deviation 55.1 fL (35.1-46.3); Red Blood Cell Count 4.27 M/mm3 (3.80-5.20); White Blood Cell Count 7.31 K/mm3 (4.00-11.30)
[2018-12-21 04:09] LABS: Anion Gap 6 mmol/L (6-16); Blood Urea Nitrogen 30 mg/dL (8-24); Bun/Creatinine Ratio 42.3 (12.0-20.0); CO2, Blood 30 mmol/L (21-32); Calcium, Blood 7.9 mg/dL (8.5-10.1); Chloride, Blood 107 mmol/L (98-108); Creatinine, Blood 0.71 mg/dL (0.40-1.00); Glomerular Filtration Rate >60 (60-); Glucose, Blood 104 mg/dL (70-99); Magnesium, Blood 2.2 mg/dL (1.6-2.4); Potassium, Blood 3.7 mmol/L (3.5-5.5); Sodium, Blood 143 mmol/L (136-145)
--- NOTE | 2018-12-21 05:12 | NUR ---
SBT/SEDATION VACATION PROPOFOL TURNED OFF AT 0400; SBT INITIATED AT 0435 WITH PRESSURE SUPPORT 7/5; FIO2 25%. PT ALERT, CALM AND COOPERATIVE, AND FOLLOWING COMMANDS. PT MAINTAINED TV GREATER THAN 350; RR GREATER THAN 12, BUT LESS THAN 27. VS REMAINED STABLE T/O SBT. PT REMAINED ON SPONTANEOUS AFTER SBT D/T PT TOLERATING SO WELL. PROPOFOL REMAINS OFF AT THIS TIME.
--- NOTE | 2018-12-21 05:20 | NUR ---
PHYSICIAN NOTIFIED NOTIFIED OF PHOSPHORUS LEVEL OF 2.0; NO NEW ORDERS.
--- NOTE | 2018-12-21 06:14 | NUR ---
END OF SHIFT SUMMARY PT HAS REMAINED ON VENT MODE AC14; TV 300; PEEP 5; FIO2 25%; OXYGEN SATURATIONS >93%. DURING SEDATION VACATION PT WAS ABLE TO OPEN EYES SPONTANEOUSLY, FOLLOW COMMANDS, AND REMAINED CALM AND COOPERATIVE T/O ENTIRE SBT. PT WAS LEFT ON SPONTANEOUS MODE WITH PRESSURE SUPPORT 7/5; FIO2 25% FOR AT LEAST ANOTHER 30 MINUTES AFTER SBT WAS FINISHED. PT DID FAIRLY WELL; HOWEVER, SHE DID START TO TIRE AND RESP RATE DECREASED TO LESS THAN 11. THEREFORE, PT WAS PLACED BACK ON AC MODE AT 0525 WITH SAME VENT SETTINGS. PT RECEIVED ONE DOSE OF PRN FENTANYL 50MCG FOR PAIN THIS SHIFT. LUNG SOUNDS REMAIN CLEAR T/O. FLORES CONTINUES TO DRAIN CLEAR, YELLOW URINE; PATENT AND DRAINING TO GRAVITY. PT HAS REMAINED IN NSR T/O SHIFT WITH HR 60'S. SITE TO LEFT SIDE OF NECK REMAINS COVERED WITH GAUZE WITH MINIMAL AMOUNTS OF DRIED SEROSANGUINEOUS DRAINAGE NOTED TO DRESSING. PT APPEARS COMFORTABLE AT THIS TIME.
--- NOTE | 2018-12-21 08:00 | NUR ---
INITIAL ASSESSMENT PATIENT INTUBATED AND WAS ON SEDATION. PROPOFOL PLACED ON STANDBY. PATIENT NOT YET AWAKE. PATIENT RESPONDING TO PAINFUL STIMULI. NO SIGNS OF PAIN NOTED. PATIENT HAS TEMP OF 99.1 DEGREES FAHRENHEIT. LUNGS ARE CLEAR THROUGHOUT. PATIENT SATTING WELL ON AC 14, TV 300, PEEP 5, 25% FIO2. SCANT AMOUNT OF THICK, CLEAR SPUTUM FROM ETT. PATIENT IN NSR, HR IN THE 60S. BP STABLE. 1+ EDEMA NOTED IN HANDS. ABDOMEN NONTENDER, NO DISTENTION NOTED, SOFT, WITH NORMOACTIVE BS. TF INFUSING INTO OG AT GOAL RATE. SENOKOT GIVEN PATIENT HAS NO RECORDED BM SINCE THE November. FLORES DRAINING YELLOW URINE. PATIENT HAS SCATTERED BRUISING. GAUZE AND TAPE PLACED ON SURGICAL SITE ON LEFT SIDE OF NECK- SMALL AMOUNT OF SEROSANGUINEOUS FLUID NOTED. NS TKO. BED LOW, CALL LIGHT IN REACH. WILL CONTINUE TO MONITOR PATIENT FREQUENTLY THROUGHOUT SHIFT.
--- NOTE | 2018-12-21 08:17 | NUR ---
DR. YAO IN ROOM.
--- NOTE | 2018-12-21 10:00 | NUR ---
PATIENT EXTUBATED BY RT. FAMILY AT BEDSIDE.
--- NOTE | 2018-12-21 10:37 | NUR ---
PATIENT RESTING IN BED QUIETLY. SON AT BEDSIDE. PATIENT CALM AND COOPERATIVE. PATIENT DOING WELL SINCE EXTUBATION. PATIENT ON 3 L O2 VIA NC. PATIENT ORIENTED AND FOLLOWING COMMANDS. DR. YAO HAS BEEN IN TO SEE PATIENT SINCE EXTUBATION. WILL CONTINUE TO MONITOR.
--- NOTE | 2018-12-21 12:36 | NUR ---
PATIENT RESTING QUIETLY IN BED. PATIENT ORIENTED TO ALL QUESTIONS EXCEPT TO EVENT AND DATE/ TIME. PATIENT WEAK BUT TRYING TO HELP WITH REPOSITIONING. PATIENT DENIES PAIN. PATIENT AFEBRILE. PATIENT LUNGS SOUNDS CLEAR. SATTING WELL ON RA. PATIENT IN SR, HR IN THE 60S. BP STABLE. FLORES REMOVED AND ATTENDS PLACED. NO CHANGE IN SKIN. NS TKO. NO OTHER ACUTE CHANGES TO NOTE ON AT THIS TIME. WILL CONTINUE TO MONITOR.
--- NOTE | 2018-12-21 16:30 | NUR ---
PATIENT RESTING IN BED QUIETLY, RECEIVING BREATHING TREATMENT. PATIENT HAS NO COMPLAINTS. PATIENT HAS TEMP OF 99.7 DEGREES FAHRENHEIT AND STATES SHE "FEELS COLD". PATIENT REMAINS SATTING WELL ON RA. PATIENT IN SR, HR IN THE 70S. BP STABLE. NO OTHER ACUTE CHANGES TO NOTE ON AT THIS TIME. WILL CONTINUE TO MONITOR.
--- NOTE | 2018-12-21 18:02 | NUR ---
SHIFT SUMMARY PATIENT EXTUBATED THIS AM AT 1000 AND HAS BEEN DOING WELL SINCE. PATIENT HAS HAD SOME COMPLAINTS OF BACK DISCOMFORT BUT REPORTS RELIEF WITH REPOSITIONING. PATIENT HAD TMAX OF 99.7 DEGREES FAHRENHEIT. PATIENT IS MOSTLY ORIENTED. PATIENT WAS NOT AWARE WHY SHE WAS HERE AND DOES NOT KNOW DATE/ TIME. PATIENT IS WEAK BUT IS ASSISTING WITH REPOSITIONING. PATIENT HAS BEEN SATTING WELL ON RA. PATIENT LUNGS ARE CLEAR T/O. SHALLOW BREATHS NOTED. PATIENT HAS REMAINED IN SR, HR 60S TO 70S. BP HAS BEEN ELEVATED A COUPLE OF TIMES BUT MOSTLY STABLE T/O SHIFT. 1+ EDEMA REMAINS IN BILAT HANDS. SENOKOT GIVEN LAST DOCUMENTED BM ON THE November. PATIENT INCONTINENT OF URINE- ATTENDS IN PLACE. PATIENT HAS VOIDED SINCE FLORES CATH REMOVED THIS AM. NO CHANGE IN SKIN. NS TKO. LR TO INFUSE AT 150 MLS/ HOUR FOR MAINTENANCE OVERNIGHT. PATIENT RECEIVED 20 MM KPHOS THIS AM FOR PHOS LEVEL OF 2.0. PATIENT NPO AT THIS TIME, IS RECEIVING WATER SWABS. SWALLOW EVAL TOMORROW. BED LOW, CALL LIGHT IN REACH. PATIENT HAS NO COMPLAINTS AT THIS TIME. WILL CONTINUE TO MONITOR UNTIL REPORT GIVEN TO ONCOMING APPLICATION DEVELOPMENT CONSULTANT NURSE SHORTLY.
--- NOTE | 2018-12-21 19:00 | NUR ---
ASSUMED CARE ASSUMED CARE OF PATIENT. AWAKE AND ALERT. COOPERATIVE WITH CARE. ORIENTED TO SELF, PLACE, AND MONTH/YEAR, BUT NOT TO TIME OF DAY OR EVENTS LEADING UP TO BEING IN THE HOSPITAL. MOVES ALL EXTREMITIES WEAKLY. ASSISTS WITH REPOSITIONING. C/O NECK/BACK PAIN 01/27- REPOSTIONED FOR COMFORT. MONITOR SHOWS NSR, RATE 70s. SBP 160s. REMAINS ON RA- SATS 92-94%. RESPIRATIONS EVEN AND UNLABORED, SHALLOW. DENIES SOB. NO COUGH NOTED AT THIS TIME. DENIES NAUSEA. NPO FOR NOW- SWALLOW EVAL SCHEDULED FOR AM. INCONTINENT OF URINE- ATTENDS IN PLACE. SEE SHIFT ASSESSMENT FOR FULL ASSESSMENT.
[2018-12-22 04:34] LABS: BASOPHILS ABSOLUTE AUTO 0.01 K/mm3 (0.00-0.23); BASOPHILS PERCENT AUTO 0 % (0-2); EOSINOPHILS ABSOLUTE AUTO 0.06 K/mm3 (0.00-0.68); EOSINOPHILS PERCENT AUTO 1 % (0-6); Hematocrit 37.4 % (33.0-51.0); Hemoglobin 11.5 g/dL (11.5-16.0); IMMATURE GRAN ABSOLUTE AUTO 0.03 K/mm3 (0.00-0.10); IMMATURE GRAN PERCENT AUTO 0 % (0-1); LYMPHOCYTES ABSOLUTE AUTO 0.95 K/mm3 (0.84-5.20); LYMPHOCYTES PERCENT AUTO 11 % (21-46); MONOCYTES ABSOLUTE AUTO 1.01 K/mm3 (0.16-1.47); MONOCYTES PERCENT AUTO 12 % (4-13); Mean Corpuscular HGB 24.8 pg (26.0-34.0); Mean Corpuscular HGB Conc 30.7 g/dL (31.5-36.5); Mean Corpuscular Volume 81 fL (80-100); NEUTROPHILS ABSOLUTE AUTO 6.69 K/mm3 (1.96-9.15); NEUTROPHILS PERCENT AUTO 77 % (41-73); Platelet Count 228 K/mm3 (150-400); RDW Coefficient Variation 18.4 % (11.7-14.2); RDW Standard Deviation 53.1 fL (35.1-46.3); Red Blood Cell Count 4.63 M/mm3 (3.80-5.20); White Blood Cell Count 8.75 K/mm3 (4.00-11.30)
[2018-12-22 04:50] LABS: Albumin, Blood 2.7 g/dL (3.4-5.0); Anion Gap 6 mmol/L (6-16); Blood Urea Nitrogen 20 mg/dL (8-24); Bun/Creatinine Ratio 28.2 (12.0-20.0); CO2, Blood 29 mmol/L (21-32); Chloride, Blood 107 mmol/L (98-108); Creatinine, Blood 0.71 mg/dL (0.40-1.00); Glomerular Filtration Rate >60 (60-); Glucose, Blood 85 mg/dL (70-99); Phosphorus, Blood 2.2 mg/dL (2.5-4.9); Potassium, Blood 3.4 mmol/L (3.5-5.5); Sodium, Blood 142 mmol/L (136-145)
--- NOTE | 2018-12-22 04:55 | NUR ---
O2 O2 SATS DECREASE TO 85-87% WHEN PT ASLEEP. 2LNC ON AT THIS TIME.
--- NOTE | 2018-12-22 06:25 | NUR ---
SHIFT SUMMARY NO ACUTE CHANGES DURING NOC. RESTS QUIETLY WHEN UNDISTURBED, BUT SLEPT VERY LITTLE. CONTINUES TO C/O NECK PAIN- FREQUENT REPOSITIONING FOR COMFORT AND MEDICATED WITH FENTANYL 50MCG IV X 2 DURING SHIFT. LR INFUSING @ 150CC/HR PER ORDER. FREQUENTLY INCONTINENT OF LARGE AMOUNTS OF URINE. REMAINS NPO UNTIL SWALLOW EVAL DONE. C/O DRY MOUTH- FREQUENT ORAL CARE DONE. MONITOR SHOWS NSR, RATE 60-70s. SBP 140-160s. TMAX 99.8F. PAS TO BLE. WILL REPORT TO DAY SHIFT RN WHEN AVAILABLE.
--- NOTE | 2018-12-22 08:00 | NUR ---
INITIAL ASSESSMENT PATIENT SLEEPING SOUNDLY UPON NURSE ENTERING ROOM. PATIENT ALERT AND ORIENTED X 4. PATIENT HAS TEMP OF 100.0 DEGREES FAHRENHEIT. PATIENT COMPLAINS OF SOME THROAT PAIN BUT THAT IT IS MANAGEABLE AT THIS TIME. PATIENT INFORMED THAT IT IS PROBABLY FROM HAVING THE BREATHING TUBE. PATIENT WEAK BUT STRENGTH IS IMPROVING DAY TO DAY. PT AND OT ORDERED. PATIENT SATTING WELL ON RA. LUNGS CLEAR T/O. SHALLOW BREATHS NOTED. PATIENT HAS OCCASIONAL, MOIST, NONPRODUCTIVE COUGH. PATIENT IN SR, HR 60S TO 70S. SBP IN THE 170S. 1+ EDEMA TO HANDS. PATIENT HAS NO HAD BM SINCE THE November. PATIENT INCONTINENT OF URINE AND STOOL. ATTENDS IN PLACE. URINE YELLOW IN COLOR. SCATTERED BRUISING NOTED. L NECK SWOLLEN- GOLF BALL SIZE LUMP. GAUZE AND TAPE ON. LR INFUSING AT 150 MLS/ HOUR, NS TKO. BED LOW, CALL LIGHT IN REACH. WILL CONTINUE TO MONITOR PATIENT FREQUENTLY THROUGHOUT SHIFT.
--- NOTE | 2018-12-22 08:35 | NUR ---
SPEECH THERAPY EVALUATING PATIENT AT THIS TIME.
--- NOTE | 2018-12-22 08:52 | NUR ---
DR. YAO IN ROOM TO SEE PATIENT.
--- NOTE | 2018-12-22 09:09 | NUR ---
SPOKE TO PHARMACIST, HALLEY ROSALES, WHO STATED THAT ALL OF PATIENT'S MEDICATIONS ARE OKAY TO BE CRUSHED.
--- NOTE | 2018-12-22 09:29 | NUR ---
DR. ROBERTSTRATE IN TO SEE PATIENT.
--- NOTE | 2018-12-22 12:02 | NUR ---
PATIENT RESTING QUIETLY IN BED. RECEIVING BREATHING TX AT THIS TIME. NO COMPLAINTS. PATIENT HAS TEMP OF 100.4 DEGREES FAHRENHEIT. PATIENT REMAINS SATTING WELL ON RA. PATIENT IN SR, HR 60S TO 70S. SBP IN THE 140S. LR INFUSING AT 75 MLS/ HOUR. NO OTHER CHANGES TO REPORT ON AT THIS TIME.
--- NOTE | 2018-12-22 12:36 | NUR ---
SHIFT SUMMARY PATIENT HAS REMAINED NAPPING ON AND OFF AND WATCHING TV IN BED. PATIENT HAS HAD SEVERAL VISITORS TODAY. PATIENT DOES NOT HAVE ANY COMPLAINTS AT THIS TIME. PATIENT HAD TMAX OF 100.4 DEGREES FAHRENHEIT SO FAR THIS SHIFT. PATIENT REMAINS ALERT AND ORIENTED X 4. WEAK BUT IS IMPROVING. PATIENT REMAINS SATTING WELL ON RA. PATIENT HAS REMAINED IN SR, HR 60S TO 70S. SBP 140S TO 170S. BIOTENE PRN OBTAINED FOR DRY MOUTH. PATIENT RECEIVED SENOKOT AND COLACE THIS AM FOR NO BM SINCE THE November. PATIENT SEEN BY SPEECH THERAPY THIS AM. PATIENT OKAY TO HAVE THIN LIQUIDS BY TEASPOON, PUREED DIET WITH EXTRA MOIST FOOD, MEDS CRUSHED IN APPLESAUCE, 90 DEGREES WHILE EATING, AND A FEEDER. PATIENT HAS BEEN TOLERATING WELL THUS FAR. PATIENT REMAINS INCONTINENT. PATIENT VOIDING YELLOW COLORED URINE AND ABLE TO TELL NURSE WHEN SHE NEEDS CHANGED. NO CHANGE TO SKIN. GAUZE AND TAPE CHANGED ON NECK LUMP. LR INFUSING AT 75 MLS/ HOUR. PATIENT RECEIVED 30 MM K PHOS THIS AM FOR POTASSIUM OF 3.4 AND PHOSPHORUS OF 2.2 THIS AM. NO OTHER CHANGES TO NOTE ON AT THIS TIME. REPORT GIVEN TO ASSUMING PCU NURSE. PATIENT WILL BE TRANSFERRED SHORTLY TO PCU 05.
--- NOTE | 2018-12-22 13:03 | NUR ---
PATIENT TRANSFERRED SUCCESSFULLY TO PCU 05. NURSE AND IT SOFTWARE DEVELOPER ASSUMED.
--- NOTE | 2018-12-22 16:47 | NUR ---
ASSUMED CARE OF PT APPROX. 1300. RECIEVED REPORT FROM RN. PT THEN ESCORTED BY STAFF TO NEW ROOM HERE IN PCU. PT TRANSFERED OVER TO PCU BED. NO S/SX OF ACUTE DISTRESS. ASSESSMENT FINDINGS FROM MORNING ASSESSMENT REMAIN UNCHANGED. VITAL SIGNS STABLE. ORIENTED PT TO ROOM, UNIT, AND PROCEDURES. PHYSCIAL THERAPY IN TO SEE PATIENT ABOUT AN HOUR AFTER ARRIVAL TO UNIT. PT WAS ABLE TO US FRONT WHEEL WALKER AND TRANSFER TO CHAIR. PT SAT UP IN CHAIR TO EAT AND FOR ABOUT 45 MINUTES AFTER EATING. AT THIS TIME PT THEN TRANSFERED WITH FWW AND 2 PERSON ASSIST BACK TO BED. FAMILY AT BEDSIDE INTERMITTENTLY. BED IN LOW POSITION, CALL LIGHT IN REACH, AND PT DENIES ANY NEEDS AT THIS TIME.
--- NOTE | 2018-12-22 19:07 | NUR ---
SHIFT SUMMARY PT PLEASANT, COOPERATIVE AND USES CALL LIGHT APPROPRIATELY. PT REMAINS A&O X4. VITAL SIGNS REMAIN STABLE. PT SAT UP AT 90 DEGRESS FOR DINNER AND REPORTS THAT SHE HAD MORE APPETITIE AND SANDY TO EAT MORE THAN PREVIOUS TIMES. SHE WAS ABLE TO REMAIN SITTING UP FOR APPROX 30-45 MINUTES AFTER EATING EACH TIME. FAMILY AND FRIENDS AT BEDSIDE INTERMITTENLY.DRESSING REMAINS IN PLACE ON LEFT SIDE OF NECK WHERE TUMOR IS LOCATED. BED IN LOW POSITION, BED ALARM ON, CALL LIGHT IN REACH AND PT DENIES ANY NEEDS AT THIS TIME. WILL CONTINUE TO MONITOR UNTIL HANDOFF TO NIGHTSHIFT RN.
--- NOTE | 2018-12-22 22:31 | NUR ---
ASSUMED CARE OF PATIENT AT APPROXIMATELY 1915 FROM NICCI Aguilera RN. PATIENT ALERT AND ORIENTED X4. PATIENT REPORTED CRAMPING LEG PAIN IN BOTH LEGS; REPOSISTIONED; LEGS ELEVATED ON PILLOWS BUT PATIENT REPORTS PAIN STILL 6/10; MEDICATED PER EMAR; PAIN RELIEVED. PATIENT DENIES CP/PRESSURE, NUMBNESS, TINGLING, DIZZINESS OR NAUSEA. PATIENT REPORTS POOR APPETITE LATELY. PATIENT TAKES MEDS CRUSHED IN APPLESAUCE; NO STRAWS; ASPIRATION PRECAUTIONS; FEEDER. PATIENT IS VERY WEAK BUT REPORTS FEELING STRONGER EACH DAY. PATIENT INCONTINENT OF URINE AT START OF SHIFT; PATIENT REPORTS WHEN ATTENDS NEEDS TO BE CHANGED. Q2H TURN; 2 PERSON ASSIST OUT OF BED. NSR ON TELE; OXYGEN SATURATION ABOVE 90% ON ROOM AIR. GOLF BALL SIZED NECK LUMP WITH DRESSING IN PLACE; C/D/I. PG TO BLAZE S/L. IVF INFUSING PER ORDER INTO RIGHT PIV. PATIENT CURRENTLY SLEEPING IN BED; CALL LIGHT IN REACH; BED IN LOWEST POSISTION; BED ALARM ON; WILL CONTINUE TO MONITOR AND ASSESS UNTIL END OF SHIFT.
[2018-12-23 04:40] LABS: BASOPHILS ABSOLUTE AUTO 0.01 K/mm3 (0.00-0.23); BASOPHILS PERCENT AUTO 0 % (0-2); EOSINOPHILS ABSOLUTE AUTO 0.23 K/mm3 (0.00-0.68); EOSINOPHILS PERCENT AUTO 3 % (0-6); Hematocrit 35.5 % (33.0-51.0); IMMATURE GRAN ABSOLUTE AUTO 0.04 K/mm3 (0.00-0.10); IMMATURE GRAN PERCENT AUTO 0 % (0-1); LYMPHOCYTES ABSOLUTE AUTO 1.01 K/mm3 (0.84-5.20); LYMPHOCYTES PERCENT AUTO 11 % (21-46); MONOCYTES ABSOLUTE AUTO 0.91 K/mm3 (0.16-1.47); MONOCYTES PERCENT AUTO 10 % (4-13); Mean Corpuscular HGB 25.2 pg (26.0-34.0); Mean Corpuscular Volume 81 fL (80-100); Mean Platelet Volume 8.5 fL (9.1-12.4); NEUTROPHILS ABSOLUTE AUTO 7.07 K/mm3 (1.96-9.15); NEUTROPHILS PERCENT AUTO 76 % (41-73); Platelet Count 216 K/mm3 (150-400); RDW Coefficient Variation 18.3 % (11.7-14.2); RDW Standard Deviation 53.8 fL (35.1-46.3); Red Blood Cell Count 4.37 M/mm3 (3.80-5.20); White Blood Cell Count 9.27 K/mm3 (4.00-11.30)
[2018-12-23 04:52] LABS: Albumin, Blood 2.6 g/dL (3.4-5.0); Anion Gap 7 mmol/L (6-16); Blood Urea Nitrogen 12 mg/dL (8-24); Bun/Creatinine Ratio 18.8 (12.0-20.0); CO2, Blood 27 mmol/L (21-32); Calcium, Blood 7.9 mg/dL (8.5-10.1); Chloride, Blood 105 mmol/L (98-108); Creatinine, Blood 0.64 mg/dL (0.40-1.00); Glomerular Filtration Rate >60 (60-); Glucose, Blood 94 mg/dL (70-99); Phosphorus, Blood 1.9 mg/dL (2.5-4.9); Potassium, Blood 3.5 mmol/L (3.5-5.5); Sodium, Blood 139 mmol/L (136-145)
--- NOTE | 2018-12-23 06:40 | NUR ---
NO ACUTE CHANGES TO REPORT. PATIENT SLEPT ABOUT EIGHT HOURS LAST NIGHT. SOFT TOUCH CALL BUTTON GIVEN TO PATIENT. VSS. WILL CONTINUE TO MONITOR AND ASSESS UNTIL END OF SHIFT.
--- NOTE | 2018-12-23 19:17 | NUR ---
SHIFT SUMMARY No acute changes t/o shift. Pt remains on room air. Medical floor status without telemetry. Up in chair for all meals. Tolerating thin liquids via spoon and supervision well. Tolerating meals with supervision well. Bed in lowest position. Call light in reach. Report given to oncoming MARCE Raza.
--- NOTE | 2018-12-23 23:00 | NUR ---
ASSUMED CARE OF PATIENT AT APPROXIMATELY 1910 FROM CLARISA Goncalves RN. PATIENT ALERT AND ORIENTED X4. PATIENT REPORTED CRAMPING LEG PAIN IN BOTH LEGS/BACK AND NECK; REPOSISTIONED; LEGS ELEVATED ON PILLOWS; PAIN STILL 6/10; MEDICATED PER EMAR; PAIN RELIEVED. PATIENT DENIES CP/PRESSURE, NUMBNESS, TINGLING, DIZZINESS OR NAUSEA. PATIENT REPORTS POOR APPETITE LATELY. PATIENT TAKES MEDS CRUSHED IN APPLESAUCE; NO STRAWS; ASPIRATION PRECAUTIONS; FEEDER. PATIENT IS VERY WEAK BUT REPORTS FEELING STRONGER EACH DAY. PATIENT INCONTINENT OF URINE AT START OF SHIFT; PATIENT REPORTS WHEN ATTENDS NEEDS TO BE CHANGED. Q2H TURN; 2 PERSON ASSIST OUT OF BED; PATIENT USED BEDSIDE COMMODE BEFORE SHIFT ASSESSMENT; VERY WEAK. MEDICAL STATUS NO TELE; OXYGEN SATURATION ABOVE 90% ON ROOM AIR. GOLF BALL SIZED NECK LUMP WITH DRESSING IN PLACE; C/D/I. PG TO BLAZE S/L. IVF INFUSING PER ORDER INTO RIGHT PIV. PATIENT CURRENTLY SLEEPING IN BED; CALL LIGHT IN REACH; BED IN LOWEST POSISTION; BED ALARM ON; WILL CONTINUE TO MONITOR AND ASSESS UNTIL END OF SHIFT.
[2018-12-24 04:34] LABS: BASOPHILS ABSOLUTE AUTO 0.01 K/mm3 (0.00-0.23); BASOPHILS PERCENT AUTO 0 % (0-2); EOSINOPHILS ABSOLUTE AUTO 0.23 K/mm3 (0.00-0.68); EOSINOPHILS PERCENT AUTO 2 % (0-6); Hemoglobin 10.1 g/dL (11.5-16.0); IMMATURE GRAN ABSOLUTE AUTO 0.08 K/mm3 (0.00-0.10); IMMATURE GRAN PERCENT AUTO 1 % (0-1); LYMPHOCYTES ABSOLUTE AUTO 1.13 K/mm3 (0.84-5.20); LYMPHOCYTES PERCENT AUTO 12 % (21-46); MONOCYTES ABSOLUTE AUTO 1.11 K/mm3 (0.16-1.47); MONOCYTES PERCENT AUTO 12 % (4-13); Mean Corpuscular HGB 25.6 pg (26.0-34.0); Mean Corpuscular HGB Conc 31.6 g/dL (31.5-36.5); Mean Corpuscular Volume 81 fL (80-100); Mean Platelet Volume 8.8 fL (9.1-12.4); NEUTROPHILS ABSOLUTE AUTO 7.04 K/mm3 (1.96-9.15); NEUTROPHILS PERCENT AUTO 73 % (41-73); Platelet Count 230 K/mm3 (150-400); RDW Coefficient Variation 17.9 % (11.7-14.2); RDW Standard Deviation 52.4 fL (35.1-46.3); Red Blood Cell Count 3.95 M/mm3 (3.80-5.20)
[2018-12-24 04:48] LABS: Alanine Aminotransfer (ALT/SGP 14 U/L (12-78); Albumin, Blood 2.4 g/dL (3.4-5.0); Albumin/Globulin Ratio 0.8 (0.8-1.8); Alk Phos 43 U/L (50-136); Anion Gap 8 mmol/L (6-16); Aspartate Aminotrans (AST/SGOT 13 U/L (12-37); Bilirubin, Total 0.5 mg/dL (0.1-1.0); Blood Urea Nitrogen 12 mg/dL (8-24); Bun/Creatinine Ratio 18.1 (12.0-20.0); CO2, Blood 26 mmol/L (21-32); Calcium, Blood 7.8 mg/dL (8.5-10.1); Chloride, Blood 106 mmol/L (98-108); Creatinine, Blood 0.66 mg/dL (0.40-1.00); Glomerular Filtration Rate >60 (60-); Glucose, Blood 98 mg/dL (70-99); Phosphorus, Blood 1.9 mg/dL (2.5-4.9); Potassium, Blood 3.6 mmol/L (3.5-5.5); Sodium, Blood 140 mmol/L (136-145); Total Protein, Blood 5.4 g/dL (6.4-8.2)
--- NOTE | 2018-12-24 20:13 | NUR ---
SHIFT SUMMARY Assumed care of pt at 0700. Report recieved from Luz Marina ZHENG. Pt on room air. Medical floor status without telemety. Pt OOB several times this shift. Tolerating activity much more that previously noted. Redness and swelling noted to right hand. Pt thinks this pain started from trying to push buttons on her call light when she was too weak to do so (pt has had soft-touch call light at bedside since before this RN assumed care of pt on 12/23/18). Discussed pt's pain with Dr Rico when he was at bedside. Blood uric acid level ordered. This RN discussed the results of the lab with the provider. Orders given for fentanyl patch and change in dosage of IV fentanyl. Pt also states her knees are in pain. When asked if she typically has pain in these areas, pt states she usually does not have any pain but at this time, she feels that she is having pain everywhere, and mentions pain in her neck and back as well. No additional changes to shift assessment. Bed maintained in lowest position. Call light in reach. Pt denies need at this time. Report given to Courtney ZHENG.
[2018-12-25 05:28] LABS: Hematocrit 32.7 % (33.0-51.0); Mean Corpuscular HGB 25.6 pg (26.0-34.0); Mean Corpuscular HGB Conc 30.6 g/dL (31.5-36.5); Platelet Count 266 K/mm3 (150-400); RDW Coefficient Variation 20.9 % (11.7-14.2); RDW Standard Deviation 56.7 fL (35.1-46.3); Red Blood Cell Count 3.91 M/mm3 (3.80-5.20); White Blood Cell Count 8.44 K/mm3 (4.00-11.30)
[2018-12-25 05:29] LABS: Mean Corpuscular Volume 84 fL (80-100)
[2018-12-25 06:55] LABS: Albumin, Blood 2.3 g/dL (3.4-5.0); Anion Gap 8 mmol/L (6-16); Blood Urea Nitrogen 18 mg/dL (8-24); Bun/Creatinine Ratio 25.2 (12.0-20.0); CO2, Blood 25 mmol/L (21-32); Chloride, Blood 104 mmol/L (98-108); Creatinine, Blood 0.71 mg/dL (0.40-1.00); Glomerular Filtration Rate >60 (60-); Glucose, Blood 103 mg/dL (70-99); Phosphorus, Blood 2.6 mg/dL (2.5-4.9); Potassium, Blood 3.9 mmol/L (3.5-5.5); Sodium, Blood 137 mmol/L (136-145)
--- NOTE | 2018-12-25 07:24 | NUR ---
SHIFT SUMMARY PATIENT VERY PLEASENT AND COOPERATIVE THROUGHOUT THE NIGHT. PATIENT MEDICATED FOR PAIN PER EMAR. PATIENT APPEARED TO SLEEP WELL LAST NIGHT. PATIENT TURNED Q2H. ORAL CARE PROVIDED. VITAL SIGNS CHARTED. REPORT GIVEN TO ONCOMING RN.
--- NOTE | 2018-12-25 08:25 | NUR ---
BEGINNING OF SHIFT Assumed care at 0700. Report received from Courtney ZHENG. Pt on room air. Medical floor status without telemetry. Pt OOB to chair prior to breakfast. Pt much stronger than previously noted. No difficulties with swallowing noted while pt ate breakfast. Call light in reach. Pt denies need at this time.
[2018-12-25] MEDS ORDERED: ACET325 PO (15:10)
[2018-12-25] MEDS ORDERED: AMOCLA500 PO (15:11)
[2018-12-25] MEDS ORDERED: FAMO20 PO (15:12)
[2018-12-25] MEDS ORDERED: LIDO700A20 TOP (15:13)
[2018-12-25] MEDS ORDERED: Phos-Nak Packe1 EACH PO (15:15)
[2018-12-25] MEDS ORDERED: ONDA4ODT SL (15:16)
[2018-12-25] MEDS ORDERED: SACC250C PO (15:16)
[2018-12-25] MEDS ORDERED: PRED10 PO (15:18)
[2018-12-25] MEDS ORDERED: BIOTENE MOIST44.3 ML PO (15:19)
[2018-12-25] MEDS ORDERED: ACYC400 PO (15:20)
--- NOTE | 2018-12-25 16:20 | NUR ---
UPDATE This RN placed call to Dr Rico and asked provider to look at blisters on zonia area. Provider assessed perineal area and placed orders for additional medications on discharge.
--- NOTE | 2018-12-25 17:28 | NUR ---
Mrs. Mojica is a spry, intelligent woman who is fiercly independant. She lives alone and tells me that her sister lives close-by and helps out when needed. She says she sometimes struggles with the limitations brought by aging. She has a radha erick and is involved with the Muslim erick community. She believes she will continue to improve albeit "too slowly" for her liking. We had an easy rapport. I provided theraputic listening and spiritual encouragement. We prayed together for her family at her request. I will remain available.
--- NOTE | 2018-12-25 20:23 | NUR ---
DISCHARGE Pt discharged from unit at 1745 to [facility]. Report called to nurse and [facility] prior to pt departure. Belongings and discharge packet transferred with patient. While providing zonia care for pt, this RN noticed a red area with blisters on the pt's vulva. There was a similar red area on her left lower buttock that now had blisters but did not during previous days. This was previously charted as a "pressure ulcer" to the left ischial tuberosity but appears not to be one with appearace of blisters. Istrate asked by this RN to examine the legions. Acyclovir prescibed for pt for discharge. Pt states she had not had blisters in this area before and denies history of herpes simplex virus.
== END 2018-12-25 17:47 | DRG 863 ==
LOC: ER 03:42 → ICUW 06:15 → PCU 06:15 → ICUW 16:25 → PCU 12-22 08:56
PROVIDERS: Emergency Medicine; Family Medicine; Internal Medicine; Internal Medicine Critical Care Medicine; Internal Medicine Pulmonary Disease; Otolaryngology; ADMIT Hospitalist
PROC: 0BH17EZ Insertion of Endotracheal Airway into Trachea, Via Natural or Artificial Opening (ICD-10-PCS; 2018-12-16)
PROC: 5A1955Z Respiratory Ventilation, Greater than 96 Consecutive Hours (ICD-10-PCS; 2018-12-16)
PROC: 0J9500Z Drainage of Left Neck Subcutaneous Tissue and Fascia with Drainage Device, Open Approach (ICD-10-PCS; principal; 2018-12-16 15:30)
DX: T81.43XA Infection following a procedure, organ and space surgical site, initial encounter (principal); L76.32 Postprocedural hematoma of skin and subcutaneous tissue following other procedure; L02.11 Cutaneous abscess of neck; J95.89 Other postprocedural complications and disorders of respiratory system, not elsewhere classified; M81.0 Age-related osteoporosis without current pathological fracture; Z90.49 Acquired absence of other specified parts of digestive tract; I10 Essential (primary) hypertension; E03.9 Hypothyroidism, unspecified; F17.210 Nicotine dependence, cigarettes, uncomplicated; Z79.82 Long term (current) use of aspirin; J98.8 Other specified respiratory disorders; R91.1 Solitary pulmonary nodule; J43.9 Emphysema, unspecified; M79.641 Pain in right hand; B00.9 Herpesviral infection, unspecified; B02.9 Zoster without complications; D11.9 Benign neoplasm of major salivary gland, unspecified; Y84.8 Other medical procedures as the cause of abnormal reaction of the patient, or of later complication, without mention of misadventure at the time of the procedure; Y92.9 Unspecified place or not applicable
CPT/HCPCS: 31720; 36415; 36600; 51702; 70491; 71045; 80047; 80048; 80053; 80069; 81001; 82803; 82947; 83735; 84100; 84550; 85014; 85025; 85027; 87070; 87077; 87186; 87205; 92526; 92610; 94002; 94003; 94640; 94760; 96365; 96366; 96367; 96375; 96376; 97110; 97116; 97163; 97166; 97530; 97535; 99285-25; C1751; G0378; J0295; J0330; J0360; J1100; J1650; J1940; J2370; J2405; J3010; J3370; J7050; J7060; J7120; Q9967

== ENCOUNTER 2021-05-05 20:19 | Emergency (ER) | payer MEDICARE ==
[~2021-05-05] VITALS: Ht 152.4 cm; Wt 41.7 kg
[~2021-05-05 20:19] MED LIST changes: +ACYC400 PO; +AMOCLA500 PO; +Aspir 8181 MG PO; +BIOTENE MOIST44.3 ML PO; +Florastor250 MG PO; +GAVILAX17 GM PO; +HYDCOR2.5C PR; +INCRUSE ELLI62.5 MCG INH; +ONDA4ODT SL; +PRED10 PO; +Phos-Nak Packe1 EACH PO; +Prinivil10 MG PO; +VITAMIN D325 MC3 PO
[2021-05-05 21:17] LABS: BASOPHILS ABSOLUTE AUTO 0.07 K/mm3 (0.00-0.23); BASOPHILS PERCENT AUTO 1 % (0-2); EOSINOPHILS ABSOLUTE AUTO 0.42 K/mm3 (0.00-0.68); EOSINOPHILS PERCENT AUTO 8 % (0-6); Hematocrit 43.4 % (33.0-51.0); Hemoglobin 13.2 g/dL (11.5-16.0); IMMATURE GRAN ABSOLUTE AUTO 0.01 K/mm3 (0.00-0.10); IMMATURE GRAN PERCENT AUTO 0 % (0-1); LYMPHOCYTES ABSOLUTE AUTO 1.15 K/mm3 (0.84-5.20); LYMPHOCYTES PERCENT AUTO 23 % (21-46); MONOCYTES ABSOLUTE AUTO 0.53 K/mm3 (0.16-1.47); MONOCYTES PERCENT AUTO 10 % (4-13); Mean Corpuscular HGB 25.7 pg (26.0-34.0); Mean Corpuscular HGB Conc 30.4 g/dL (31.5-36.5); Mean Corpuscular Volume 85 fL (80-100); Mean Platelet Volume 8.8 fL (9.1-12.4); NEUTROPHILS ABSOLUTE AUTO 2.92 K/mm3 (1.96-9.15); NEUTROPHILS PERCENT AUTO 57 % (41-73); Platelet Count 264 K/mm3 (150-400); RDW Standard Deviation 64.6 fL (35.1-46.3); Red Blood Cell Count 5.13 M/mm3 (3.80-5.20)
[2021-05-05 21:35] LABS: Albumin, Blood 3.7 g/dL (3.4-5.0); Albumin/Globulin Ratio 0.8 (0.8-1.8); Bilirubin, Total 0.3 mg/dL (0.1-1.0); Bun/Creatinine Ratio 33.3 (12.0-20.0); Calcium, Blood 9.2 mg/dL (8.5-10.1); Creatinine, Blood 1.14 mg/dL (0.40-1.00); Globulin, Blood 4.5 g/dL (2.2-4.0); Total Protein, Blood 8.2 g/dL (6.4-8.2)
[2021-05-06] MEDS ORDERED: MAGCIT300 PO (05:56)
[2021-05-06] MEDS ORDERED: ADULT GLYCERIN1 EACH PR (05:56)
[2021-05-06] MEDS ORDERED: BISA5EC PO (05:56)
== END 2021-05-06 06:02 | disposition home or self-care (01) ==
LOC: ER 20:19
PROVIDERS: Physician Assistant
DX: K59.00 Constipation, unspecified (principal); I10 Essential (primary) hypertension; E03.9 Hypothyroidism, unspecified; F17.200 Nicotine dependence, unspecified, uncomplicated; Z79.82 Long term (current) use of aspirin; Z79.899 Other long term (current) drug therapy
CPT/HCPCS: 36415; 74177; 80053; 82272; 85025; 96374-59; 96375; 99284-25; A9270; J2060; J3010; Q9967

== ENCOUNTER 2021-06-08 06:45 | Emergency (ER) | payer MEDICARE, OTHER | END 2021-06-08 11:53 | disposition home or self-care (01) | LOC: ER 06:45 | DX: R31.9 Hematuria, unspecified (principal); R06.00 Dyspnea, unspecified; I10 Essential (primary) hypertension; E03.9 Hypothyroidism, unspecified; F17.210 Nicotine dependence, cigarettes, uncomplicated; Z88.5 Allergy status to narcotic agent; Z88.2 Allergy status to sulfonamides; Z88.1 Allergy status to other antibiotic agents; Z79.899 Other long term (current) drug therapy ==